=== PATIENT | female | born 1955 | race Asian ===

== ENCOUNTER 2017-10-09 11:27 | Inpatient (IN) | payer OTHER ==
[2017-10-09 12:28] VITALS: BMI 27.4
--- NOTE | 2017-10-09 16:28 | HP ---
Admission [facility] Chief Complaint: I WANT TO GO TO REHAB Allergies/Adverse Reactions: Allergies Allergy/AdvReac Type Severity Reaction Status Date / Time No Known Allergies Allergy Verified 10/09/17 15:29 History of Present Illness: 61 YEARS OLD FEMALE WITH LONG HISTORY OF ALCOHOL NICOTINE DEPENDENCE HAS ASTHMA , HYPERTENSION, DIABETES II AND BIPOLAR II IS ADMITTED TO REHAB Exam Limitations: No Limitations - Ebola screening Have you traveled outside of the country in the last 21 days: No Have you had contact with anyone from an Ebola affected area: No Have you been sick,other than usual withdrawal symptoms: No Do you have a fever: No - Review of Systems Constitutional: Weight Stable EENT: reports: Blurred Vision (EYE GLASSES) Respiratory: reports: SOB with Exertion, Productive cough (YELLOWISH) Cardiac: reports: No Symptoms Reported GI: reports: No Symptoms Reported : reports: No Symptoms Reported Musculoskeletal: reports: Muscle Weakness (AMBULATE WITH CANE BOTH LEGS) Integumentary: reports: Bruising (LEFT FORE ARM "LAST WEEK" GENERAL BODY = LEFT LEG) Neuro: reports: No Symptoms reported Endocrine: reports: Increased Urine Hematology: reports: No Symptoms Reported Psychiatric: reports: Judgement Intact, Orientated x3, Anxious Other Systems: Reviewed and Negative Patient History - Patient Medical History Hx Anemia: No Hx Asthma: Yes Hx Chronic Obstructive Pulmonary Disease (COPD): No Hx Cancer: No Hx Cardiac Disorders: No Hx Congestive Heart Failure: No Hx Hypertension: Yes Hx Hypercholesterolemia: No Hx Pacemaker: No HX Cerebrovascular Accident: No Hx Seizures: No Hx Dementia: No Hx Diabetes: Yes (NIDDM) Hx Gastrointestinal Disorders: Yes (ACID REFLUX) Hx Liver Disease: No Hx Genitourinary Disorders: No Hx Sexually Transmitted Disorders: No Hx Renal Disease (ESRD): No Hx Thyroid Disease: No Hx Human Immunodeficiency Virus (HIV): No Hx Hepatitis C: Yes Hx Depression: No Hx Suicide Attempt: No Hx Bipolar Disorder: Yes Hx Schizophrenia: No - Patient Surgical History Past Surgical History: Yes Hx Neurologic Surgery: No Hx Cataract Extraction: No Hx Cardiac Surgery: No Hx Lung Surgery: No Hx Breast Surgery: No Hx Abdominal Surgery: Yes (1996 GI BLEEDING) Hx Appendectomy: No Hx Cholecystectomy: No Hx Genitourinary Surgery: No Hx Section: No Hx Orthopedic Surgery: No Hx Hysterectomy: No Anesthesia Reaction: No - PPD History Previous Implant?: Yes Documented Results: Positive w/o proof Implanted On Prior [facility] Admission?: No PPD to be Administered?: No - Reproductive History Patient is a Female of Child Bearing Age (11 -55 yrs old): No LMP comment: AGE 56 Patient : No - Smoking Cessation Smoking history: Current every day smoker Have you smoked in the past 12 months: Yes Aproximately how many cigarettes per day: 10 Cigars Per Day: 0 Hx Chewing Tobacco Use: No Initiated information on smoking cessation: Yes 'Breaking Loose' booklet given: 10/09/17 - Substance & Tx. History Hx Alcohol Use: Yes Hx Substance Use: No Substance Use Type: Alcohol Hx Substance Use Treatment: Yes (2009) - Substances Abused Alcohol-beer Route: Oral Frequency: 1-2 times per week Amount used: 3 (25 oz.) Age of first use: 18 Date of Last Use: 10/07/17 Family Disease History - Family Disease History Family Disease History: Diabetes: Brother, Respiratory: Mother (), Other : Father (NO CONTACT), Mother Admission Physical Exam S - Vital Signs Vital Signs: Vital Signs - 24 hr 10/09/17 12:26 Temperature 98.3 F Pulse Rate 88 Respiratory 18 Rate Blood Pressure 126/100 - Physical General Appearance: Yes: No Apparent Distress, Nourished, Appropriately Dressed HEENTM: Yes: Hearing grossly Normal, Normal ENT Inspection, Normocephalic, Normal Voice, Other (EYE GLASSES) Respiratory: Yes: Chest Non-Tender, Lungs Clear, Normal Breath Sounds, No Respiratory Distress, No Accessory Muscle Use Neck: Yes: Supple, Trachea in good position Breast: Yes: Breasts Symetrical Cardiology: Yes: Regular Rhythm, Regular Rate, S1, S2 Abdominal: Yes: Normal Bowel Sounds, Non Tender, Soft, Surgical Scar Genitourinary: Yes: Within Normal Limits Back: Yes: Normal Inspection Musculoskeletal: Yes: full range of Motion, Gait Steady (CANE) Extremities: Yes: Normal Inspection (BRUSING GENERAL BODY), Normal Range of Motion, Non-Tender Neurological: Yes: Fully Oriented, Alert, Normal Response, Other (WEAKNESS OF BOTH LEGS) Integumentary: Yes: Warm, Other (BRUISING GENERAL BODY) Lymphatic: Yes: Within Normal Limits - Diagnostic (1) Alcohol dependence with uncomplicated withdrawal Current Visit: Yes Status: Acute (2) Nicotine dependence Current Visit: Yes Status: Acute Qualifiers: Nicotine product type: cigarettes Substance use status: in withdrawal Qualified Code(s): F17.213 - Nicotine dependence, cigarettes, with withdrawal (3) Asthma Current Visit: Yes Status: Chronic Qualifiers: Asthma severity: mild Asthma persistence: intermittent Asthma complication type: with status asthmaticus Qualified Code(s): J45.22 - Mild intermittent asthma with status asthmaticus (4) Hypertension Current Visit: Yes Status: Chronic Qualifiers: Hypertension type: essential hypertension Qualified Code(s): I10 - Essential (primary) hypertension (5) Diabetes mellitus type II, uncontrolled Current Visit: Yes Status: Chronic Qualifiers: Diabetes mellitus complication status: with neurologic complications Diabetes mellitus complication detail: with mononeuropathy Diabetes mellitus intermediate designer insulin use: without detention use Qualified Code(s): E11.41 - Type 2 diabetes mellitus with diabetic mononeuropathy; E11.65 - Type 2 diabetes mellitus with hyperglycemia; E11.65 - Type 2 diabetes mellitus with hyperglycemia; E11.65 - Type 2 diabetes mellitus with hyperglycemia; E11.65 - Type 2 diabetes mellitus with hyperglycemia (6) Use of cane as ambulatory aid Current Visit: Yes Status: Chronic Comment: X10 YEARS (7) GERD (gastroesophageal reflux disease) Current Visit: Yes Status: Chronic Qualifiers: Esophagitis presence: without esophagitis Qualified Code(s): K21.9 - Gastro -esophageal reflux disease without esophagitis (8) Hepatitis C Current Visit: Yes Status: Chronic Qualifiers: Viral hepatitis chronicity: carrier Qualified Code(s): B18.2 - Chronic viral hepatitis C (9) Positive PPD, treated Current Visit: Yes Status: Resolved (10) Bipolar II disorder Current Visit: Yes Status: Suspected Cleared for Admission [facility] - Detox or Rehab [facility] Level of Care: Observation Bed Detox Regimen/Protocol: Not Applicable Claeared for Rehab Admission: Yes [facility] Breath Alcohol Content Breath Alcohol Content: 0 Urine Pregancy Test - Result Urine Test Results: Negative- NO Line Present Urine Drug Screen - Results Drug Screen Negative: No Urine Drug Screen Results: BZO-Benzodiazepines, TCA-Tricyclic Antidepress Inpatient Rehab Admission - Initial Determination Are CD services needed?: Yes Free of communicable disease: Yes Not in need of hospitalization: Yes - Rehab Admission Criteria Previous failed treatment: Yes Poor recovery environment: Yes Comorbidities: Yes Lacks judgement: No Patient is meeting Inpatient Rehab admission criteria:: Yes
[2017-10-09] MEDS ORDERED: MAG HYDROX/AL HYDROX/SIMETH 30 ML UNIT-DOSE CUP PO PRN (16:35)
[2017-10-09] MEDS ORDERED: ACETAMINOPHEN 325 MG TABLET (FP) PO PRN (16:35)
[2017-10-09] MEDS ORDERED: MAGNESIUM HYDROX 2400MG/30ML ORAL SUSPENSION 30 ML CUP PO PRN (16:35)
[2017-10-09] MEDS ORDERED: LOPERAMIDE HCL 2 MG CAPSULE PO PRN (16:35)
[2017-10-09] MEDS ORDERED: MAGNESIUM CITRATE 300 ML BOTTLE PO PRN (16:35)
[2017-10-09] MEDS ORDERED: NICOTINE POLACRILEX 2 MG GUM BC PRN (16:35)
[2017-10-09] MEDS ORDERED: P-EPHED 60MG/TRIPROLIDI 2.5MG TABLET PO PRN (16:35)
[2017-10-09] MEDS ORDERED: ALBUTEROL SO4 18 GM HFA INHALER IH PRN (16:36)
[2017-10-09] MEDS: GLIMEPIRIDE 4 MG TABLET (FP) PO SCH (17:48)
[2017-10-09] MEDS ORDERED: PT OWN MED DRAWER 7, Y5N ONE (19:26)
[2017-10-09] MEDS: THIAMINE HCL 100 MG TABLET (FP) PO SCH (21:50)
[2017-10-09] MEDS: risperiDONE 2 MG TABLET PO SCH (21:50)
[2017-10-09] MEDS: OXcarbazepine 300 MG TABLET (UD) PO SCH (21:51)
[2017-10-09] MEDS: LITHIUM CARBONATE 450 MG TABLET.ER PO SCH (21:51)
[2017-10-09] MEDS: BENZTROPINE MESYLATE 1 MG TABLET (FP) PO SCH (21:52)
[2017-10-10] MEDS: sitaGLIPtin PHOSPHATE 100 MG TABLET (FP) PO SCH (06:15)
[2017-10-10] MEDS: OXcarbazepine 300 MG TABLET (UD) PO SCH ×2 (06:15→21:33)
[2017-10-10] MEDS: FLUoxetine HCL 20 MG CAPSULE (FP) PO SCH (06:16)
[2017-10-10] MEDS: GLIMEPIRIDE 4 MG TABLET (FP) PO SCH ×2 (06:16→16:59)
[2017-10-10] MEDS: INSULIN SLIDING SCALE (NOVOLOG) 1 VIAL SQ SCH ×2 (07:19→17:01)
[2017-10-10] MEDS ORDERED: INSULIN (NOVOLOG) ASPART 100 UNITS/ML 10ML VIAL ONE ×2 (07:49→17:02)
[2017-10-10] MEDS ORDERED: PT OWN MED DRAWER 7, Y5N ONE ×3 (08:53→19:18)
[2017-10-10 09:55] LABS: URINE APPEARANCE CLOUDY; URINE BILIRUBIN NEGATIVE (NEGATIVE); URINE BLOOD NEGATIVE (NEGATIVE); URINE COLOR LTYELLOW; URINE GLUCOSE (UA) 3+ (NEGATIVE); URINE KETONE NEGATIVE (NEGATIVE); URINE NITRITE NEGATIVE (NEGATIVE); URINE PROTEIN NEGATIVE (NEGATIVE); URINE UROBILINOGEN NEGATIVE mg/dL (0.2-1.0)
[2017-10-10 09:55] LABS: MCHC 33.1 g/dl (32.0-36.0); MEAN CELL VOLUME 96.5 fl (80-96); MEAN PLT VOLUME 8.5 fl (7.5-11.1); PLATELET COUNT 216 K/MM3 (134-434); RDW 13.9 % (11.6-15.6); WHITE BLOOD COUNT 6.9 K/mm3 (4.0-10.0)
[2017-10-10] MEDS: risperiDONE 2 MG TABLET PO SCH ×2 (10:01→21:31)
[2017-10-10] MEDS: PRENATAL VITAMINS W/ FOLIC ACID TABLET (FP) PO SCH (10:02)
[2017-10-10] MEDS: NICOTINE 14 MG/24 HOURS TOPICAL PATCH TD SCH (10:02)
[2017-10-10] MEDS: LISINOPRIL 5 MG TABLET (FP) PO SCH (10:02)
[2017-10-10] MEDS: BENZTROPINE MESYLATE 1 MG TABLET (FP) PO SCH ×2 (10:03→21:31)
[2017-10-10] MEDS: LITHIUM CARBONATE 450 MG TABLET.ER PO SCH ×2 (10:04→21:33)
[2017-10-10 11:00] LABS: ALBUMIN 3.6 g/dl (3.4-5.0); ALK PHOS 75 U/L (45-117); ANION GAP 6 (8-16); BILIRUBIN,TOTAL 0.6 mg/dL (0.2-1.0); CO2 29 mmol/L (21-32); CREATININE 0.7 mg/dL (0.55-1.02); SGOT/AST 28 U/L (15-37); SGPT/ALT 64 U/L (12-78); TOT PROT 6.5 g/dl (6.4-8.2)
[2017-10-10 11:18] LABS: GLUCOSE,RANDOM 352 mg/dL (74-106)
[2017-10-10 14:29] LABS: URINE LEUK ESTERASE TRACE (NEGATIVE)
[2017-10-10] MEDS: guaiFENesin/D-METHORPHAN HB 10 ML UNIT-DOSE CUPS PO PRN (20:15)
[2017-10-10] MEDS: MENTHOL/PHENOL 1 EACH UD MM PRN (20:16)
[2017-10-10] MEDS: THIAMINE HCL 100 MG TABLET (FP) PO SCH (21:31)
[2017-10-11] MEDS ORDERED: PT OWN MED DRAWER 7, Y5N ONE ×3 (05:49→16:20)
[2017-10-11] MEDS: sitaGLIPtin PHOSPHATE 100 MG TABLET (FP) PO SCH (06:48)
[2017-10-11] MEDS: OXcarbazepine 300 MG TABLET (UD) PO SCH ×2 (06:48→21:20)
[2017-10-11] MEDS: FLUoxetine HCL 20 MG CAPSULE (FP) PO SCH (06:48)
[2017-10-11] MEDS: INSULIN SLIDING SCALE (NOVOLOG) 1 VIAL SQ SCH ×2 (06:48→16:34)
[2017-10-11] MEDS: GLIMEPIRIDE 4 MG TABLET (FP) PO SCH ×2 (06:48→16:37)
[2017-10-11] MEDS ORDERED: INSULIN (NOVOLOG) ASPART 100 UNITS/ML 10ML VIAL ONE ×2 (06:52→16:34)
[2017-10-11] MEDS: PRENATAL VITAMINS W/ FOLIC ACID TABLET (FP) PO SCH (09:47)
[2017-10-11] MEDS: risperiDONE 2 MG TABLET PO SCH ×2 (09:47→21:21)
[2017-10-11] MEDS: BENZTROPINE MESYLATE 1 MG TABLET (FP) PO SCH ×2 (09:47→21:21)
[2017-10-11] MEDS: LITHIUM CARBONATE 450 MG TABLET.ER PO SCH ×2 (09:47→21:21)
[2017-10-11] MEDS: NICOTINE 14 MG/24 HOURS TOPICAL PATCH TD SCH (09:48)
[2017-10-11] MEDS: LISINOPRIL 5 MG TABLET (FP) PO SCH (09:48)
[2017-10-11] MEDS: guaiFENesin/D-METHORPHAN HB 10 ML UNIT-DOSE CUPS PO PRN ×2 (11:59→19:53)
[2017-10-11] MEDS: ALBUTEROL SO4 2.5/IPRATROPIUM 0.5 INH SOL 3 ML VIAL.NEB. NEB PRN (12:35)
[2017-10-11] MEDS: MENTHOL/PHENOL 1 EACH UD MM PRN ×2 (16:37→21:00)
[2017-10-11] MEDS: THIAMINE HCL 100 MG TABLET (FP) PO SCH (21:21)
[2017-10-12] MEDS ORDERED: PT OWN MED DRAWER 7, Y5N ONE ×3 (03:23→19:24)
[2017-10-12] MEDS: sitaGLIPtin PHOSPHATE 100 MG TABLET (FP) PO SCH (06:22)
[2017-10-12] MEDS: FLUoxetine HCL 20 MG CAPSULE (FP) PO SCH (06:22)
[2017-10-12] MEDS: OXcarbazepine 300 MG TABLET (UD) PO SCH ×2 (06:22→21:19)
[2017-10-12] MEDS: GLIMEPIRIDE 4 MG TABLET (FP) PO SCH ×2 (06:22→16:32)
[2017-10-12] MEDS: INSULIN SLIDING SCALE (NOVOLOG) 1 VIAL SQ SCH ×2 (06:23→16:33)
[2017-10-12] MEDS ORDERED: INSULIN (NOVOLOG) ASPART 100 UNITS/ML 10ML VIAL ONE ×2 (06:48→16:32)
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
[2017-10-12] MEDS: PRENATAL VITAMINS W/ FOLIC ACID TABLET (FP) PO SCH (09:45)
[2017-10-12] MEDS: risperiDONE 2 MG TABLET PO SCH ×2 (09:45→21:19)
[2017-10-12] MEDS: LISINOPRIL 5 MG TABLET (FP) PO SCH (09:45)
[2017-10-12] MEDS: BENZTROPINE MESYLATE 1 MG TABLET (FP) PO SCH ×2 (09:46→21:20)
[2017-10-12] MEDS: LITHIUM CARBONATE 450 MG TABLET.ER PO SCH ×2 (09:47→21:20)
[2017-10-12] MEDS: guaiFENesin/D-METHORPHAN HB 10 ML UNIT-DOSE CUPS PO PRN ×2 (09:47→21:22)
[2017-10-12] MEDS: NICOTINE 14 MG/24 HOURS TOPICAL PATCH TD SCH (09:48)
--- NOTE | 2017-10-12 15:24 | PN ---
S Progress Note (SOAP) Plan: .
[2017-10-12] MEDS: ALBUTEROL SO4 2.5/IPRATROPIUM 0.5 INH SOL 3 ML VIAL.NEB. NEB PRN (15:53)
[2017-10-12] MEDS: THIAMINE HCL 100 MG TABLET (FP) PO SCH (21:19)
--- NOTE | 2017-10-13 01:04 | EKG ---
Test Reason : Blood Pressure : / mmHG Vent. Rate : 082 BPM Atrial Rate : 082 BPM P-R Int : 170 ms QRS Dur : 084 ms QT Int : 382 ms P-R-T Axes : 057 023 035 degrees QTc Int : 446 ms NORMAL SINUS RHYTHM NORMAL ECG NO PREVIOUS ECGS AVAILABLE Confirmed by LIBRADO SUERO MD ([id number]) on 10/13/2017 1:04:22 AM Referred By: Confirmed By:LIBRADO SUERO MD
[2017-10-13] MEDS ORDERED: PT OWN MED DRAWER 7, Y5N ONE ×2 (03:30→16:36)
[2017-10-13] MEDS: FLUoxetine HCL 20 MG CAPSULE (FP) PO SCH (06:28)
[2017-10-13] MEDS: GLIMEPIRIDE 4 MG TABLET (FP) PO SCH ×2 (06:28→17:10)
[2017-10-13] MEDS: sitaGLIPtin PHOSPHATE 100 MG TABLET (FP) PO SCH (06:28)
[2017-10-13] MEDS: INSULIN SLIDING SCALE (NOVOLOG) 1 VIAL SQ SCH ×3 (06:29→17:24)
[2017-10-13] MEDS: OXcarbazepine 300 MG TABLET (UD) PO SCH ×2 (06:29→21:13)
[2017-10-13] MEDS ORDERED: INSULIN (NOVOLOG) ASPART 100 UNITS/ML 10ML VIAL ONE ×2 (07:13→17:24)
[2017-10-13] MEDS: BENZTROPINE MESYLATE 1 MG TABLET (FP) PO SCH ×2 (10:00→21:16)
[2017-10-13] MEDS: PRENATAL VITAMINS W/ FOLIC ACID TABLET (FP) PO SCH (10:00)
[2017-10-13] MEDS: risperiDONE 2 MG TABLET PO SCH ×2 (10:00→21:13)
[2017-10-13] MEDS: LISINOPRIL 5 MG TABLET (FP) PO SCH (10:01)
[2017-10-13] MEDS: LITHIUM CARBONATE 450 MG TABLET.ER PO SCH ×2 (10:01→21:14)
[2017-10-13] MEDS: NICOTINE 14 MG/24 HOURS TOPICAL PATCH TD SCH (10:01)
[2017-10-13] MEDS: guaiFENesin/D-METHORPHAN HB 10 ML UNIT-DOSE CUPS PO PRN (11:32)
[2017-10-13] MEDS ORDERED: ACETAMINOPHEN 500 MG TABLET (FP) PO ONE (14:21)
[2017-10-13] MEDS: PANTOPRAZOLE 40 MG TABLET (FP) PO SCH (15:00)
[2017-10-13] MEDS: LORATADINE 10 MG TABLET PO SCH (15:00)
[2017-10-13] MEDS: guaiFENesin/D-METHORPHAN HB 10 ML UNIT-DOSE CUPS PO SCH ×2 (15:02→21:14)
[2017-10-13] MEDS: THIAMINE HCL 100 MG TABLET (FP) PO SCH (21:16)
[2017-10-13] MEDS ORDERED: NAPROXEN 500 MG TABLET (FP) PO SCH (22:00)
[2017-10-14] MEDS ORDERED: PT OWN MED DRAWER 7, Y5N ONE (03:27)
[2017-10-14] MEDS: sitaGLIPtin PHOSPHATE 100 MG TABLET (FP) PO SCH (06:34)
[2017-10-14] MEDS: FLUoxetine HCL 20 MG CAPSULE (FP) PO SCH (06:34)
[2017-10-14] MEDS: GLIMEPIRIDE 4 MG TABLET (FP) PO SCH ×2 (06:34→17:16)
[2017-10-14] MEDS: guaiFENesin/D-METHORPHAN HB 10 ML UNIT-DOSE CUPS PO SCH ×4 (06:34→23:31)
[2017-10-14] MEDS: OXcarbazepine 300 MG TABLET (UD) PO SCH ×2 (06:34→21:15)
[2017-10-14] MEDS: INSULIN SLIDING SCALE (NOVOLOG) 1 VIAL SQ SCH ×2 (06:34→17:19)
[2017-10-14] MEDS ORDERED: INSULIN (NOVOLOG) ASPART 100 UNITS/ML 10ML VIAL ONE ×2 (07:06→17:18)
[2017-10-14] MEDS: LORATADINE 10 MG TABLET PO SCH (09:43)
[2017-10-14] MEDS: PRENATAL VITAMINS W/ FOLIC ACID TABLET (FP) PO SCH (09:43)
[2017-10-14] MEDS: LISINOPRIL 5 MG TABLET (FP) PO SCH (09:43)
[2017-10-14] MEDS: BENZTROPINE MESYLATE 1 MG TABLET (FP) PO SCH ×2 (09:43→21:14)
[2017-10-14] MEDS: LITHIUM CARBONATE 450 MG TABLET.ER PO SCH ×2 (09:44→21:15)
[2017-10-14] MEDS: PANTOPRAZOLE 40 MG TABLET (FP) PO SCH (09:44)
[2017-10-14] MEDS: risperiDONE 2 MG TABLET PO SCH ×2 (09:44→21:15)
[2017-10-14] MEDS: NICOTINE 14 MG/24 HOURS TOPICAL PATCH TD SCH (09:45)
[2017-10-14] MEDS: THIAMINE HCL 100 MG TABLET (FP) PO SCH (21:15)
[2017-10-14] MEDS: MENTHOL/PHENOL 1 EACH UD MM PRN (23:32)
[2017-10-15] MEDS ORDERED: PT OWN MED DRAWER 7, Y5N ONE ×2 (03:16→07:15)
[2017-10-15] MEDS: INSULIN SLIDING SCALE (NOVOLOG) 1 VIAL SQ SCH ×2 (06:53→17:29)
[2017-10-15] MEDS: guaiFENesin/D-METHORPHAN HB 10 ML UNIT-DOSE CUPS PO SCH ×3 (06:54→17:29)
[2017-10-15] MEDS: OXcarbazepine 300 MG TABLET (UD) PO SCH ×2 (06:54→21:13)
[2017-10-15] MEDS: GLIMEPIRIDE 4 MG TABLET (FP) PO SCH ×2 (06:54→17:30)
[2017-10-15] MEDS: FLUoxetine HCL 20 MG CAPSULE (FP) PO SCH (06:54)
[2017-10-15] MEDS: sitaGLIPtin PHOSPHATE 100 MG TABLET (FP) PO SCH (06:54)
[2017-10-15] MEDS ORDERED: INSULIN (NOVOLOG) ASPART 100 UNITS/ML 10ML VIAL ONE ×2 (07:14→17:18)
[2017-10-15] MEDS: risperiDONE 2 MG TABLET PO SCH ×2 (09:53→21:12)
[2017-10-15] MEDS: PRENATAL VITAMINS W/ FOLIC ACID TABLET (FP) PO SCH (09:53)
[2017-10-15] MEDS: PANTOPRAZOLE 40 MG TABLET (FP) PO SCH (09:53)
[2017-10-15] MEDS: NICOTINE 14 MG/24 HOURS TOPICAL PATCH TD SCH (09:53)
[2017-10-15] MEDS: LORATADINE 10 MG TABLET PO SCH (09:53)
[2017-10-15] MEDS: BENZTROPINE MESYLATE 1 MG TABLET (FP) PO SCH ×2 (09:53→21:14)
[2017-10-15] MEDS: LISINOPRIL 5 MG TABLET (FP) PO SCH (09:53)
[2017-10-15] MEDS: LITHIUM CARBONATE 450 MG TABLET.ER PO SCH ×2 (09:57→21:13)
[2017-10-15] MEDS: THIAMINE HCL 100 MG TABLET (FP) PO SCH (21:13)
[2017-10-16] MEDS: guaiFENesin/D-METHORPHAN HB 10 ML UNIT-DOSE CUPS PO SCH ×4 (00:15→18:09)
[2017-10-16] MEDS ORDERED: PT OWN MED DRAWER 7, Y5N ONE (05:45)
[2017-10-16] MEDS: OXcarbazepine 300 MG TABLET (UD) PO SCH ×2 (06:52→21:21)
[2017-10-16] MEDS: sitaGLIPtin PHOSPHATE 100 MG TABLET (FP) PO SCH (06:52)
[2017-10-16] MEDS: INSULIN SLIDING SCALE (NOVOLOG) 1 VIAL SQ SCH ×2 (06:52→16:35)
[2017-10-16] MEDS: FLUoxetine HCL 20 MG CAPSULE (FP) PO SCH (06:52)
[2017-10-16] MEDS ORDERED: INSULIN (NOVOLOG) ASPART 100 UNITS/ML 10ML VIAL ONE ×2 (07:02→16:34)
[2017-10-16] MEDS: GLIMEPIRIDE 4 MG TABLET (FP) PO SCH ×2 (07:06→16:35)
[2017-10-16] MEDS: LISINOPRIL 5 MG TABLET (FP) PO SCH (09:58)
[2017-10-16] MEDS: BENZTROPINE MESYLATE 1 MG TABLET (FP) PO SCH ×2 (09:58→21:21)
[2017-10-16] MEDS: PANTOPRAZOLE 40 MG TABLET (FP) PO SCH (09:58)
[2017-10-16] MEDS: PRENATAL VITAMINS W/ FOLIC ACID TABLET (FP) PO SCH (09:58)
[2017-10-16] MEDS: LORATADINE 10 MG TABLET PO SCH (09:59)
[2017-10-16] MEDS: risperiDONE 2 MG TABLET PO SCH ×2 (09:59→21:22)
[2017-10-16] MEDS: LITHIUM CARBONATE 450 MG TABLET.ER PO SCH ×2 (09:59→21:21)
[2017-10-16] MEDS: NICOTINE 14 MG/24 HOURS TOPICAL PATCH TD SCH (09:59)
[2017-10-16] MEDS: MENTHOL/PHENOL 1 EACH UD MM PRN ×2 (11:50→21:26)
[2017-10-16] MEDS: THIAMINE HCL 100 MG TABLET (FP) PO SCH (21:21)
[2017-10-17] MEDS: guaiFENesin/D-METHORPHAN HB 10 ML UNIT-DOSE CUPS PO SCH ×5 (00:36→23:35)
[2017-10-17] MEDS: INSULIN SLIDING SCALE (NOVOLOG) 1 VIAL SQ SCH ×2 (06:37→16:27)
[2017-10-17] MEDS: FLUoxetine HCL 20 MG CAPSULE (FP) PO SCH (06:38)
[2017-10-17] MEDS: OXcarbazepine 300 MG TABLET (UD) PO SCH ×2 (06:38→21:09)
[2017-10-17] MEDS: sitaGLIPtin PHOSPHATE 100 MG TABLET (FP) PO SCH (06:38)
[2017-10-17] MEDS: GLIMEPIRIDE 4 MG TABLET (FP) PO SCH ×2 (06:38→16:28)
[2017-10-17] MEDS ORDERED: INSULIN (NOVOLOG) ASPART 100 UNITS/ML 10ML VIAL ONE ×2 (07:28→16:32)
[2017-10-17] MEDS: BENZTROPINE MESYLATE 1 MG TABLET (FP) PO SCH ×2 (09:41→21:09)
[2017-10-17] MEDS: PRENATAL VITAMINS W/ FOLIC ACID TABLET (FP) PO SCH (09:42)
[2017-10-17] MEDS: LORATADINE 10 MG TABLET PO SCH (09:42)
[2017-10-17] MEDS: LISINOPRIL 5 MG TABLET (FP) PO SCH (09:42)
[2017-10-17] MEDS: PANTOPRAZOLE 40 MG TABLET (FP) PO SCH (09:42)
[2017-10-17] MEDS: risperiDONE 2 MG TABLET PO SCH ×2 (09:42→21:10)
[2017-10-17] MEDS: NICOTINE 14 MG/24 HOURS TOPICAL PATCH TD SCH (09:43)
[2017-10-17] MEDS: LITHIUM CARBONATE 450 MG TABLET.ER PO SCH ×2 (09:43→21:09)
[2017-10-17] MEDS: THIAMINE HCL 100 MG TABLET (FP) PO SCH (21:10)
[2017-10-18] MEDS: INSULIN SLIDING SCALE (NOVOLOG) 1 VIAL SQ SCH ×2 (06:41→16:45)
[2017-10-18] MEDS: sitaGLIPtin PHOSPHATE 100 MG TABLET (FP) PO SCH (06:42)
[2017-10-18] MEDS: GLIMEPIRIDE 4 MG TABLET (FP) PO SCH ×2 (06:42→16:45)
[2017-10-18] MEDS: FLUoxetine HCL 20 MG CAPSULE (FP) PO SCH (06:42)
[2017-10-18] MEDS: OXcarbazepine 300 MG TABLET (UD) PO SCH ×2 (06:42→21:12)
[2017-10-18] MEDS: guaiFENesin/D-METHORPHAN HB 10 ML UNIT-DOSE CUPS PO SCH ×3 (06:42→17:01)
[2017-10-18] MEDS: PRENATAL VITAMINS W/ FOLIC ACID TABLET (FP) PO SCH (10:01)
[2017-10-18] MEDS: BENZTROPINE MESYLATE 1 MG TABLET (FP) PO SCH ×2 (10:01→21:10)
[2017-10-18] MEDS: PANTOPRAZOLE 40 MG TABLET (FP) PO SCH (10:02)
[2017-10-18] MEDS: LORATADINE 10 MG TABLET PO SCH (10:02)
[2017-10-18] MEDS: LISINOPRIL 5 MG TABLET (FP) PO SCH (10:02)
[2017-10-18] MEDS: risperiDONE 2 MG TABLET PO SCH ×2 (10:02→21:11)
[2017-10-18] MEDS: NICOTINE 14 MG/24 HOURS TOPICAL PATCH TD SCH (10:03)
[2017-10-18] MEDS: LITHIUM CARBONATE 450 MG TABLET.ER PO SCH ×2 (10:03→21:10)
[2017-10-18] MEDS ORDERED: PT OWN MED DRAWER 7, Y5N ONE (10:34)
[2017-10-18] MEDS ORDERED: INSULIN (NOVOLOG) ASPART 100 UNITS/ML 10ML VIAL ONE (16:44)
[2017-10-18] MEDS: THIAMINE HCL 100 MG TABLET (FP) PO SCH (21:11)
[2017-10-19] MEDS: guaiFENesin/D-METHORPHAN HB 10 ML UNIT-DOSE CUPS PO SCH ×2 (00:04→06:04)
[2017-10-19] MEDS: OXcarbazepine 300 MG TABLET (UD) PO SCH ×2 (06:04→21:16)
[2017-10-19] MEDS: FLUoxetine HCL 20 MG CAPSULE (FP) PO SCH (06:04)
[2017-10-19] MEDS: sitaGLIPtin PHOSPHATE 100 MG TABLET (FP) PO SCH (06:04)
[2017-10-19] MEDS: GLIMEPIRIDE 4 MG TABLET (FP) PO SCH ×2 (06:05→16:39)
[2017-10-19] MEDS ORDERED: INSULIN (NOVOLOG) ASPART 100 UNITS/ML 10ML VIAL ONE ×2 (07:31→16:36)
[2017-10-19] MEDS: INSULIN SLIDING SCALE (NOVOLOG) 1 VIAL SQ SCH ×2 (07:32→16:39)
[2017-10-19] MEDS: PRENATAL VITAMINS W/ FOLIC ACID TABLET (FP) PO SCH (10:03)
[2017-10-19] MEDS: LORATADINE 10 MG TABLET PO SCH (10:03)
[2017-10-19] MEDS: PANTOPRAZOLE 40 MG TABLET (FP) PO SCH (10:03)
[2017-10-19] MEDS: risperiDONE 2 MG TABLET PO SCH ×2 (10:03→21:16)
[2017-10-19] MEDS: LISINOPRIL 5 MG TABLET (FP) PO SCH (10:03)
[2017-10-19] MEDS: BENZTROPINE MESYLATE 1 MG TABLET (FP) PO SCH ×2 (10:03→21:16)
[2017-10-19] MEDS: LITHIUM CARBONATE 450 MG TABLET.ER PO SCH ×2 (10:03→21:16)
[2017-10-19] MEDS: NICOTINE 14 MG/24 HOURS TOPICAL PATCH TD SCH (10:04)
[2017-10-19] MEDS: guaiFENesin/D-M SUGAR-FREE/ACLHOL-FREE 118 ML BOTTLE PO SCH ×3 (13:09→23:17)
[2017-10-19] MEDS ORDERED: PT OWN MED DRAWER 7, Y5N ONE ×3 (13:40→22:58)
[2017-10-19] MEDS: THIAMINE HCL 100 MG TABLET (FP) PO SCH (21:15)
[2017-10-20] MEDS: guaiFENesin/D-M SUGAR-FREE/ACLHOL-FREE 118 ML BOTTLE PO SCH ×3 (06:30→17:01)
[2017-10-20] MEDS: sitaGLIPtin PHOSPHATE 100 MG TABLET (FP) PO SCH (06:31)
[2017-10-20] MEDS: OXcarbazepine 300 MG TABLET (UD) PO SCH ×2 (06:31→21:18)
[2017-10-20] MEDS: FLUoxetine HCL 20 MG CAPSULE (FP) PO SCH (06:31)
[2017-10-20] MEDS: GLIMEPIRIDE 4 MG TABLET (FP) PO SCH ×2 (06:31→17:01)
[2017-10-20] MEDS: INSULIN SLIDING SCALE (NOVOLOG) 1 VIAL SQ SCH ×2 (07:42→17:00)
[2017-10-20] MEDS ORDERED: INSULIN (NOVOLOG) ASPART 100 UNITS/ML 10ML VIAL ONE ×2 (07:47→16:47)
[2017-10-20] MEDS ORDERED: PT OWN MED DRAWER 7, Y5N ONE (08:43)
[2017-10-20] MEDS: NICOTINE 14 MG/24 HOURS TOPICAL PATCH TD SCH (09:48)
[2017-10-20] MEDS: PANTOPRAZOLE 40 MG TABLET (FP) PO SCH (09:49)
[2017-10-20] MEDS: BENZTROPINE MESYLATE 1 MG TABLET (FP) PO SCH ×2 (09:49→21:18)
[2017-10-20] MEDS: risperiDONE 2 MG TABLET PO SCH ×2 (09:49→21:18)
[2017-10-20] MEDS: LORATADINE 10 MG TABLET PO SCH (09:50)
[2017-10-20] MEDS: PRENATAL VITAMINS W/ FOLIC ACID TABLET (FP) PO SCH (09:50)
[2017-10-20] MEDS: LITHIUM CARBONATE 450 MG TABLET.ER PO SCH ×2 (09:50→21:18)
[2017-10-20] MEDS: LISINOPRIL 5 MG TABLET (FP) PO SCH (09:50)
[2017-10-20] MEDS: THIAMINE HCL 100 MG TABLET (FP) PO SCH (21:17)
[2017-10-21] MEDS: guaiFENesin/D-M SUGAR-FREE/ACLHOL-FREE 118 ML BOTTLE PO SCH ×4 (00:23→18:25)
[2017-10-21] MEDS ORDERED: PT OWN MED DRAWER 7, Y5N ONE ×2 (03:30→07:58)
[2017-10-21] MEDS: GLIMEPIRIDE 4 MG TABLET (FP) PO SCH ×2 (06:41→16:56)
[2017-10-21] MEDS: OXcarbazepine 300 MG TABLET (UD) PO SCH ×2 (06:41→21:18)
[2017-10-21] MEDS: sitaGLIPtin PHOSPHATE 100 MG TABLET (FP) PO SCH (06:41)
[2017-10-21] MEDS: FLUoxetine HCL 20 MG CAPSULE (FP) PO SCH (06:41)
[2017-10-21] MEDS: INSULIN SLIDING SCALE (NOVOLOG) 1 VIAL SQ SCH ×2 (06:42→16:54)
[2017-10-21] MEDS ORDERED: INSULIN (NOVOLOG) ASPART 100 UNITS/ML 10ML VIAL ONE ×2 (07:58→16:55)
[2017-10-21] MEDS: LORATADINE 10 MG TABLET PO SCH (09:20)
[2017-10-21] MEDS: BENZTROPINE MESYLATE 1 MG TABLET (FP) PO SCH ×2 (09:21→21:19)
[2017-10-21] MEDS: PRENATAL VITAMINS W/ FOLIC ACID TABLET (FP) PO SCH (09:21)
[2017-10-21] MEDS: LITHIUM CARBONATE 450 MG TABLET.ER PO SCH ×2 (09:21→21:18)
[2017-10-21] MEDS: risperiDONE 2 MG TABLET PO SCH ×2 (09:22→21:17)
[2017-10-21] MEDS: LISINOPRIL 5 MG TABLET (FP) PO SCH (09:22)
[2017-10-21] MEDS: NICOTINE 14 MG/24 HOURS TOPICAL PATCH TD SCH (09:22)
[2017-10-21] MEDS: PANTOPRAZOLE 40 MG TABLET (FP) PO SCH (09:23)
[2017-10-21] MEDS: THIAMINE HCL 100 MG TABLET (FP) PO SCH (21:17)
[2017-10-22] MEDS: guaiFENesin/D-M SUGAR-FREE/ACLHOL-FREE 118 ML BOTTLE PO SCH ×4 (00:25→17:06)
[2017-10-22] MEDS ORDERED: PT OWN MED DRAWER 7, Y5N ONE ×2 (02:54→07:31)
[2017-10-22] MEDS: INSULIN SLIDING SCALE (NOVOLOG) 1 VIAL SQ SCH ×2 (06:21→17:06)
[2017-10-22] MEDS: FLUoxetine HCL 20 MG CAPSULE (FP) PO SCH (06:22)
[2017-10-22] MEDS: OXcarbazepine 300 MG TABLET (UD) PO SCH ×2 (06:22→21:11)
[2017-10-22] MEDS: GLIMEPIRIDE 4 MG TABLET (FP) PO SCH ×2 (06:22→17:06)
[2017-10-22] MEDS: sitaGLIPtin PHOSPHATE 100 MG TABLET (FP) PO SCH (06:22)
[2017-10-22] MEDS ORDERED: INSULIN (NOVOLOG) ASPART 100 UNITS/ML 10ML VIAL ONE ×3 (07:31→23:11)
[2017-10-22] MEDS: PANTOPRAZOLE 40 MG TABLET (FP) PO SCH (09:52)
[2017-10-22] MEDS: BENZTROPINE MESYLATE 1 MG TABLET (FP) PO SCH ×2 (09:52→21:12)
[2017-10-22] MEDS: LISINOPRIL 5 MG TABLET (FP) PO SCH (09:52)
[2017-10-22] MEDS: NICOTINE 14 MG/24 HOURS TOPICAL PATCH TD SCH (09:52)
[2017-10-22] MEDS: risperiDONE 2 MG TABLET PO SCH ×2 (09:52→21:11)
[2017-10-22] MEDS: LITHIUM CARBONATE 450 MG TABLET.ER PO SCH ×2 (09:52→21:12)
[2017-10-22] MEDS: LORATADINE 10 MG TABLET PO SCH (09:52)
[2017-10-22] MEDS: PRENATAL VITAMINS W/ FOLIC ACID TABLET (FP) PO SCH (09:53)
[2017-10-22] MEDS: THIAMINE HCL 100 MG TABLET (FP) PO SCH (21:11)
[2017-10-23] MEDS: guaiFENesin/D-M SUGAR-FREE/ACLHOL-FREE 118 ML BOTTLE PO SCH ×2 (00:20→06:33)
[2017-10-23] MEDS ORDERED: PT OWN MED DRAWER 7, Y5N ONE (03:17)
[2017-10-23] MEDS: GLIMEPIRIDE 4 MG TABLET (FP) PO SCH (06:25)
[2017-10-23] MEDS: sitaGLIPtin PHOSPHATE 100 MG TABLET (FP) PO SCH (06:26)
[2017-10-23] MEDS: FLUoxetine HCL 20 MG CAPSULE (FP) PO SCH (06:26)
[2017-10-23] MEDS: OXcarbazepine 300 MG TABLET (UD) PO SCH (06:26)
[2017-10-23] MEDS: INSULIN SLIDING SCALE (NOVOLOG) 1 VIAL SQ SCH (06:27)
[2017-10-23 06:52] VITALS: TEMP 98.6
[2017-10-23] MEDS ORDERED: INSULIN (NOVOLOG) ASPART 100 UNITS/ML 10ML VIAL ONE (08:03)
[2017-10-23 09:05] VITALS: BP 121/75; PULSE 80
--- NOTE | 2017-10-23 09:07 | PN ---
Psychiatric Progress Note Vital Signs: Vital Signs Period Temp Pulse Resp BP Sys/Vance Pulse Ox Last 24 Hr 98.6 F 80-84 18-18 121-127/74-75 Date of Session: 10/23/17 Chief Complaint:: Discharge visit Current Medications: Active Medications Generic Name Dose Route Start Last Admin Trade Name Freq PRN Reason Stop Dose Admin Acetaminophen 650 mg 10/09/17 16:35 10/10/17 20:16 Tylenol - PO 650 mg Q4H PRN Administration PAIN Al Hydroxide/Mg Hydroxide 30 ml 10/09/17 16:35 10/10/17 20:15 Mylanta Oral Suspension - PO 30 ml Q6H PRN Administration DYSPEPSIA Albuterol Sulfate 2 puff 10/09/17 16:36 10/11/17 19:55 Ventolin Hfa Inhaler - IH 2 puff Q4H PRN Administration ASTHMA Benztropine Mesylate 0.5 mg 10/09/17 22:00 10/22/17 21:12 Cogentin - PO 0.5 mg BID TRISH Administration Eucalyptus/Menthol/Phenol/Sorbitol 1 each 10/09/17 16:35 10/16/17 21:26 Cepastat Lozenge - MM 1 each Q4H PRN Administration SORE THROAT Fluoxetine HCl 20 mg 10/10/17 07:00 10/23/17 06:26 Prozac - PO 20 mg AM TRISH Administration Glimepiride 4 mg 10/09/17 16:30 10/23/17 06:25 Amaryl - PO 4 mg BIDAC TRISH Administration Guaifenesin 10 ml 10/19/17 12:00 10/23/17 06:33 Diabetic Tussin Dm - PO 10 ml Q6HPO TRISH Administration Insulin Aspart 1 vial 10/13/17 14:34 10/23/17 06:27 Novolog Vial Sliding Scale - SQ 8 units BIDAC TRISH Administration Protocol Lisinopril 5 mg 10/10/17 10:00 10/22/17 09:52 Prinivil PO 5 mg DAILY TRISH Administration Merrick Carbonate 450 mg 10/09/17 22:00 10/22/17 21:12 Eskalith - PO 450 mg BID TRISH Administration Loperamide HCl 4 mg 10/09/17 16:35 Imodium - PO Q6H PRN DIARRHEA Loratadine 10 mg 10/13/17 14:30 10/22/17 09:52 Claritin - PO 10 mg DAILY TRISH Administration Magnesium Citrate 300 ml 10/09/17 16:35 Citroma - PO Q48H PRN CONSTIPATION Magnesium Hydroxide 30 ml 10/09/17 16:35 Milk Of Magnesia - PO DAILY PRN CONSTIPATION Nicotine 14 mg 10/10/17 10:00 10/22/17 09:52 Nicoderm Patch - TD 14 mg DAILY TRISH Administration Nicotine Polacrilex 2 mg 10/09/17 16:35 Nicorette Gum - BC Q2H PRN NICOTINE REPLACEMENT RX Oxcarbazepine 300 mg 10/10/17 07:00 10/23/17 06:26 Trileptal - PO 300 mg AM TRISH Administration Oxcarbazepine 600 mg 10/09/17 22:00 10/22/17 21:11 Trileptal - PO 600 mg HS TRISH Administration Pantoprazole Sodium 40 mg 10/13/17 14:30 10/22/17 09:52 Protonix - PO 40 mg DAILY TRISH Administration Multivit/Folic Acid/Iron 1 tab 10/10/17 10:00 10/22/17 09:53 Vitamins ([facility]) - PO 1 tab DAILY TRISH Administration Risperidone 2 mg 10/10/17 10:00 10/22/17 09:52 Risperdal - PO 2 mg DAILY TRISH Administration Risperidone 4 mg 10/09/17 22:00 10/22/17 21:11 Risperdal - PO 4 mg HS TRISH Administration Sitagliptin Phosphate 100 mg 10/10/17 07:00 10/23/17 06:26 Januvia - PO 100 mg ACBK TRISH Administration Thiamine HCl 100 mg 10/09/17 22:00 10/22/17 21:11 Vitamin B1 - PO 100 mg HS TRISH Administration Current Side Effect: No Lab tests ordered: No Lab tests reviewed: Yes Psychiatric Treatment Plan - Problem List (1) Seizure Current Visit: Yes Comment: HEAD TRAUMA AT AGE 20 TREATED WITH TRILEPTAL (2) Nicotine dependence Current Visit: Yes Qualifiers: Nicotine product type: cigarettes Substance use status: in withdrawal Qualified Code(s): F17.213 - Nicotine dependence, cigarettes, with withdrawal (3) Asthma Current Visit: Yes Qualifiers: Asthma severity: mild Asthma persistence: intermittent Asthma complication type: with status asthmaticus Qualified Code(s): J45.22 - Mild intermittent asthma with status asthmaticus (4) Hypertension Current Visit: Yes Qualifiers: Hypertension type: essential hypertension Qualified Code(s): I10 - Essential (primary) hypertension (5) Diabetes mellitus type II, uncontrolled Current Visit: Yes Qualifiers: Diabetes mellitus complication status: with neurologic complications Diabetes mellitus complication detail: with mononeuropathy Diabetes mellitus fdc insulin use: without ad terminal makeup operator use Qualified Code(s): E11.41 - Type 2 diabetes mellitus with diabetic mononeuropathy; E11.65 - Type 2 diabetes mellitus with hyperglycemia; E11.65 - Type 2 diabetes mellitus with hyperglycemia; E11.65 - Type 2 diabetes mellitus with hyperglycemia; E11.65 - Type 2 diabetes mellitus with hyperglycemia (6) GERD (gastroesophageal reflux disease) Current Visit: Yes Qualifiers: Esophagitis presence: without esophagitis Qualified Code(s): K21.9 - Gastro -esophageal reflux disease without esophagitis (7) Hepatitis C Current Visit: Yes Qualifiers: Viral hepatitis chronicity: carrier Qualified Code(s): B18.2 - Chronic viral hepatitis C (8) Bipolar II disorder Current Visit: Yes (9) Positive PPD, treated Current Visit: Yes (10) Alcohol dependence Current Visit: Yes
[2017-10-23] MEDS: PRENATAL VITAMINS W/ FOLIC ACID TABLET (FP) PO SCH (09:39)
[2017-10-23] MEDS: PANTOPRAZOLE 40 MG TABLET (FP) PO SCH (09:39)
[2017-10-23] MEDS: risperiDONE 2 MG TABLET PO SCH (09:40)
[2017-10-23] MEDS: LORATADINE 10 MG TABLET PO SCH (09:40)
[2017-10-23] MEDS: LISINOPRIL 5 MG TABLET (FP) PO SCH (09:40)
[2017-10-23] MEDS: BENZTROPINE MESYLATE 1 MG TABLET (FP) PO SCH (09:40)
[2017-10-23] MEDS: LITHIUM CARBONATE 450 MG TABLET.ER PO SCH (09:40)
[2017-10-23] MEDS: NICOTINE 14 MG/24 HOURS TOPICAL PATCH TD SCH (09:41)
== END 2017-10-23 09:42 | disposition home or self-care (01) | DRG 772 ==
LOC: YASAS 11:27 → Y3E 16:17
PROVIDERS: ADMIT Psychiatry & Neurology Psychiatry; ATTEND Psychiatry & Neurology Psychiatry
PROC: HZ42ZZZ Group Counseling for Substance Abuse Treatment, Cognitive-Behavioral (ICD-10-PCS; principal; 2017-10-09)
DX: F11.20 Opioid dependence, uncomplicated (principal); F17.210 Nicotine dependence, cigarettes, uncomplicated; F31.81 Bipolar II disorder; I10 Essential (primary) hypertension; E11.65 Type 2 diabetes mellitus with hyperglycemia; Z79.84 Long term (current) use of oral hypoglycemic drugs; J45.22 Mild intermittent asthma with status asthmaticus; K21.9 Gastro-esophageal reflux disease without esophagitis; B18.2 Chronic viral hepatitis C; R76.11 Nonspecific reaction to tuberculin skin test without active tuberculosis
CPT/HCPCS: 36415; 71020-TC; 80053; 80178; 81003; 81015; 85027; 86593; 93005; 93010; 94640

== ENCOUNTER 2019-11-15 15:07 | Inpatient (IN) | payer OTHER ==
[2019-11-15 18:17] VITALS: BMI 28.8
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
[2019-11-15] MEDS ORDERED: ACETAMINOPHEN 325 MG TABLET (FP) PO PRN ×2 (21:11)
[2019-11-15] MEDS ORDERED: METHOCARBAMOL 500 MG TABLET PO PRN (21:11)
[2019-11-15] MEDS ORDERED: ONDANSETRON *ODT* 4 MG TABLET SL PRN (21:11)
[2019-11-15] MEDS ORDERED: BISMUTH SUBSALICYLATE 524 MG/30 ML UD PO PRN (21:11)
[2019-11-15] MEDS ORDERED: MAGNESIUM HYDROX 2400MG/30ML ORAL SUSPENSION 30 ML CUP PO PRN (21:11)
[2019-11-15] MEDS ORDERED: MAGNESIUM CITRATE 300 ML BOTTLE PO PRN (21:11)
[2019-11-15] MEDS ORDERED: hydrOXYzine PAMOATE 25 MG CAPSULE (FP) PO PRN (21:11)
[2019-11-15] MEDS ORDERED: chlordiazePOXIDE HCL 25 MG CAPSULE PO ONE (21:11)
[2019-11-15] MEDS ORDERED: MELATONIN 5 MG TABLETS PO PRN (21:11)
[2019-11-15] MEDS ORDERED: IBUPROFEN 400 MG TABLET (FP) PO PRN (21:11)
[2019-11-15] MEDS ORDERED: MAG HYDROX/AL HYDROX/SIMETH 30 ML UNIT-DOSE CUP PO PRN (21:11)
[2019-11-15] MEDS ORDERED: chlordiazePOXIDE HCL 10 MG CAPSULE PO PRN (21:11)
[2019-11-15] MEDS ORDERED: ALBUTEROL SO4 8 GM HFA INHALER IH PRN (21:16)
[2019-11-15] MEDS ORDERED: PATIENT'S OWN MEDICATION (NON-FORMULARY) (Benzonatate 100 MG) PO PRN (21:16)
[2019-11-15] MEDS: risperiDONE 2 MG TABLET PO SCH (22:56)
[2019-11-15] MEDS: THIAMINE HCL 100 MG TABLET (FP) PO SCH (22:57)
[2019-11-15] MEDS: chlordiazePOXIDE HCL 25 MG CAPSULE PO SCH (23:01)
[2019-11-15] MEDS: MENTHOL/PHENOL 1 EACH UD MM PRN (23:11)
[2019-11-15] MEDS: INSULIN (LEVEMIR) 100 UNITS/ML UNITS SQ SCH (23:12)
[2019-11-15] MEDS: CLOTRIMAZOLE 1% CREAM 15 GM TUBE TP SCH (23:25)
[2019-11-16] MEDS: BENZTROPINE MESYLATE 0.5 MG TABLET (FP) PO SCH ×2 (00:03→09:57)
[2019-11-16] MEDS: chlordiazePOXIDE HCL 25 MG CAPSULE PO SCH ×3 (06:00→22:05)
[2019-11-16] MEDS: INSULIN SLIDING SCALE (NOVOLOG) 1 VIAL SQ SCH ×3 (06:03→17:03)
[2019-11-16] MEDS ORDERED: FLUoxetine HCL 10 MG CAPSULE (FP) PO SCH (07:00)
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
[2019-11-16] MEDS: LISINOPRIL 5 MG TABLET (FP) PO SCH (09:56)
[2019-11-16] MEDS: risperiDONE 2 MG TABLET PO SCH ×2 (09:57→22:06)
[2019-11-16] MEDS: PRENATAL VITAMINS W/ FOLIC ACID TABLET (FP) PO SCH (09:57)
[2019-11-16] MEDS: CLOTRIMAZOLE 1% CREAM 15 GM TUBE TP SCH ×2 (09:57→22:10)
[2019-11-16] MEDS: FENOFIBRIC ACID 135 MG CAP PO SCH (09:57)
[2019-11-16] MEDS: NICOTINE 21 MG/24 HOURS TOPICAL PATCH TD SCH (09:58)
[2019-11-16] MEDS ORDERED: FENOFIBRATE MICRONIZED 130 MG PO SCH (10:00)
[2019-11-16 10:23] LABS: HEMATOCRIT 39.9 % (32.4-45.2); HEMOGLOBIN 13.3 GM/dL (10.7-15.3); MCH 29.6 pg (25.7-33.7); MCHC 33.3 g/dl (32.0-36.0); MEAN CELL VOLUME 88.8 fl (80-96); MEAN PLT VOLUME 7.3 fl (7.5-11.1); PLATELET COUNT 268 K/MM3 (134-434); RDW 14.6 % (11.6-15.6); WHITE BLOOD COUNT 6.1 K/mm3 (4.0-10.0)
[2019-11-16 10:42] LABS: BILIRUBIN,TOTAL 0.4 mg/dL (0.2-1); BLOOD UREA NITROGEN 11.1 mg/dL (7-18); CALCIUM 9.8 mg/dL (8.5-10.1); CREATININE 0.6 mg/dL (0.55-1.3); POTASSIUM 4.7 mmol/L (3.5-5.1); TOT PROT 7.1 g/dl (6.4-8.2)
[2019-11-16] MEDS ORDERED: INSULIN SLIDING SCALE (NOVOLOG) 1 VIAL SQ ONE (11:46)
--- NOTE | 2019-11-16 13:08 | PN ---
[facility] CIWA - CIWA Score Nausea/Vomitin-Mild Nausea/No Vomiting Muscle Tremors: 3 Anxiety: 2 Agitation: 1-Slight > Activity Paroxysmal Sweats: 2 Orientation: 2-Disoriented Date<2 days (date of week time of day) Tacttile Disturbances: 0-None Auditory Disturbances: 0-None Visual Disturbances: 0-None Headache: 0-None Present CIWA-Ar Total Score: 11 S Progress Note (SOAP) Subjective: 63 years old female admitted on 11/15/19 for alcohol withdrawal sx management treating with librium detox regimen ambulating with cane on hallway steady gait patient acknowledged her alcoholic condition "sober 13 years" left 40 years ago has supportive daughters Objective: 11/16/19 13:10 Vital Signs Temperature 96.9 F L 11/16/19 09:33 Pulse Rate 92 H 11/16/19 09:33 Respiratory Rate 20 11/16/19 09:33 Blood Pressure 131/69 11/16/19 09:33 O2 Sat by Pulse Oximetry (%) Laboratory Last Values WBC 6.1 K/mm3 (4.0-10.0) 11/16/19 07:40 RBC 4.50 M/mm3 (3.60-5.2) 11/16/19 07:40 Hgb 13.3 GM/dL (10.7-15.3) 11/16/19 07:40 Hct 39.9 % (32.4-45.2) 11/16/19 07:40 MCV 88.8 fl (80-96) 11/16/19 07:40 MCH 29.6 pg (25.7-33.7) 11/16/19 07:40 MCHC 33.3 g/dl (32.0-36.0) 11/16/19 07:40 RDW 14.6 % (11.6-15.6) 11/16/19 07:40 Plt Count 268 K/MM3 (134-434) D 11/16/19 07:40 MPV 7.3 fl (7.5-11.1) L D 11/16/19 07:40 Sodium 139 mmol/L (136-145) 11/16/19 07:40 Potassium 4.7 mmol/L (3.5-5.1) 11/16/19 07:40 Chloride 106 mmol/L (98-107) 11/16/19 07:40 Carbon Dioxide 27 mmol/L (21-32) 11/16/19 07:40 Anion Gap 6 MMOL/L (8-16) L 11/16/19 07:40 BUN 11.1 mg/dL (7-18) 11/16/19 07:40 Creatinine 0.6 mg/dL (0.55-1.3) 11/16/19 07:40 Est GFR (CKD-EPI)AfAm 112.43 11/16/19 07:40 Est GFR (CKD-EPI)NonAf 97.01 11/16/19 07:40 POC Glucometer 303 UNITS (80-120) 11/16/19 11:25 Random Glucose 156 mg/dL (74-106) H 11/16/19 07:40 Calcium 9.8 mg/dL (8.5-10.1) 11/16/19 07:40 Total Bilirubin 0.4 mg/dL (0.2-1) 11/16/19 07:40 AST 15 U/L (15-37) 11/16/19 07:40 ALT 26 U/L (13-61) 11/16/19 07:40 Alkaline Phosphatase 61 U/L (45-117) 11/16/19 07:40 Total Protein 7.1 g/dl (6.4-8.2) 11/16/19 07:40 Albumin 4.0 g/dl (3.4-5.0) 11/16/19 07:40 RPR Titer Nonreactive (NONREACTIVE) 11/16/19 07:40 lab noted long history of diabetes 11/16/19 13:19 Assessment: 11/16/19 13:19 alcohol withdrawal Plan: librium regimen
[2019-11-16] MEDS: guaiFENesin 600 MG TABLET.ER (FP) PO SCH ×2 (15:36→22:05)
[2019-11-16 18:42] LABS: PH,URINE 6.5 (5.0-8.0); URINE APPEARANCE CLEAR; URINE BILIRUBIN NEGATIVE (NEGATIVE); URINE COLOR YELLOW; URINE GLUCOSE (UA) 3+ (NEGATIVE); URINE KETONE NEGATIVE (NEGATIVE); URINE LEUK ESTERASE NEGATIVE (NEGATIVE); URINE NITRITE NEGATIVE (NEGATIVE); URINE PROTEIN NEGATIVE (NEGATIVE); URINE UROBILINOGEN 0.2 mg/dL (0.2-1.0)
[2019-11-16] MEDS ORDERED: BENZTROPINE MESYLATE 0.5 MG TABLET (FP) PO SCH (22:00)
[2019-11-16] MEDS: THIAMINE HCL 100 MG TABLET (FP) PO SCH (22:06)
[2019-11-16] MEDS: INSULIN (LEVEMIR) 100 UNITS/ML UNITS SQ SCH (22:09)
[2019-11-16] MEDS: MENTHOL/PHENOL 1 EACH UD MM PRN (22:32)
[2019-11-17] MEDS: chlordiazePOXIDE 5 MG CAPSULE PO SCH ×3 (05:29→21:48)
[2019-11-17] MEDS ORDERED: INSULIN SLIDING SCALE (NOVOLOG) 1 VIAL SQ ONE (07:15)
[2019-11-17] MEDS: INSULIN SLIDING SCALE (NOVOLOG) 1 VIAL SQ SCH ×3 (07:21→17:17)
[2019-11-17] MEDS: FENOFIBRIC ACID 135 MG CAP PO SCH (10:03)
[2019-11-17] MEDS: NICOTINE 21 MG/24 HOURS TOPICAL PATCH TD SCH (10:03)
[2019-11-17] MEDS: FLUoxetine HCL 10 MG CAPSULE (FP) PO SCH (10:03)
[2019-11-17] MEDS: LISINOPRIL 5 MG TABLET (FP) PO SCH (10:03)
[2019-11-17] MEDS: CLOTRIMAZOLE 1% CREAM 15 GM TUBE TP SCH ×2 (10:03→21:50)
[2019-11-17] MEDS: guaiFENesin 600 MG TABLET.ER (FP) PO SCH ×2 (10:03→21:49)
[2019-11-17] MEDS: BENZTROPINE MESYLATE 1 MG TABLET (FP) PO SCH ×2 (10:03→21:49)
[2019-11-17] MEDS: risperiDONE 2 MG TABLET PO SCH ×2 (10:03→22:45)
[2019-11-17] MEDS: PRENATAL VITAMINS W/ FOLIC ACID TABLET (FP) PO SCH (10:03)
--- NOTE | 2019-11-17 11:45 | PN ---
S CIWA - CIWA Score Nausea/Vomitin-No Nausea/No Vomiting Muscle Tremors: 2 Anxiety: 2 Agitation: 2 Paroxysmal Sweats: 1-Minimal Palms Moist Orientation: 0-Oriented Tacttile Disturbances: 1-Very Mild Itch/Numbness Auditory Disturbances: 0-None Visual Disturbances: 0-None Headache: 0-None Present CIWA-Ar Total Score: 8 BHS Progress Note (SOAP) Subjective: 63 years old female admitted on 11/15/19 for alcohol withdrawal sx management treating with librium detox regimen patient has long history of positive ppd last x ray noted was 2017 chest x ray due to positive ppd Objective: 11/17/19 11:44 Vital Signs Temperature 96.7 F L 11/17/19 09:26 Pulse Rate 94 H 11/17/19 09:26 Respiratory Rate 20 11/17/19 09:26 Blood Pressure 118/66 11/17/19 09:26 O2 Sat by Pulse Oximetry (%) Laboratory Last Values WBC 6.1 K/mm3 (4.0-10.0) 11/16/19 07:40 RBC 4.50 M/mm3 (3.60-5.2) 11/16/19 07:40 Hgb 13.3 GM/dL (10.7-15.3) 11/16/19 07:40 Hct 39.9 % (32.4-45.2) 11/16/19 07:40 MCV 88.8 fl (80-96) 11/16/19 07:40 MCH 29.6 pg (25.7-33.7) 11/16/19 07:40 MCHC 33.3 g/dl (32.0-36.0) 11/16/19 07:40 RDW 14.6 % (11.6-15.6) 11/16/19 07:40 Plt Count 268 K/MM3 (134-434) D 11/16/19 07:40 MPV 7.3 fl (7.5-11.1) L D 11/16/19 07:40 Sodium 139 mmol/L (136-145) 11/16/19 07:40 Potassium 4.7 mmol/L (3.5-5.1) 11/16/19 07:40 Chloride 106 mmol/L (98-107) 11/16/19 07:40 Carbon Dioxide 27 mmol/L (21-32) 11/16/19 07:40 Anion Gap 6 MMOL/L (8-16) L 11/16/19 07:40 BUN 11.1 mg/dL (7-18) 11/16/19 07:40 Creatinine 0.6 mg/dL (0.55-1.3) 11/16/19 07:40 Est GFR (CKD-EPI)AfAm 112.43 11/16/19 07:40 Est GFR (CKD-EPI)NonAf 97.01 11/16/19 07:40 POC Glucometer 389 UNITS (80-120) 11/17/19 11:41 Random Glucose 156 mg/dL (74-106) H 11/16/19 07:40 Calcium 9.8 mg/dL (8.5-10.1) 11/16/19 07:40 Total Bilirubin 0.4 mg/dL (0.2-1) 11/16/19 07:40 AST 15 U/L (15-37) 11/16/19 07:40 ALT 26 U/L (13-61) 11/16/19 07:40 Alkaline Phosphatase 61 U/L (45-117) 11/16/19 07:40 Total Protein 7.1 g/dl (6.4-8.2) 11/16/19 07:40 Albumin 4.0 g/dl (3.4-5.0) 11/16/19 07:40 Urine Color Yellow 11/16/19 10:06 Urine Appearance Clear 11/16/19 10:06 Urine pH 6.5 (5.0-8.0) 11/16/19 10:06 Ur Specific [place] 1.013 (1.010-1.035) 11/16/19 10:06 Urine Protein Negative (NEGATIVE) 11/16/19 10:06 Urine Glucose (UA) 3+ (NEGATIVE) H 11/16/19 10:06 Urine Ketones Negative (NEGATIVE) 11/16/19 10:06 Urine Blood Negative (NEGATIVE) 11/16/19 10:06 Urine Nitrite Negative (NEGATIVE) 11/16/19 10:06 Urine Bilirubin Negative (NEGATIVE) 11/16/19 10:06 Urine Urobilinogen 0.2 mg/dL (0.2-1.0) 11/16/19 10:06 Ur Leukocyte Esterase Negative (NEGATIVE) 11/16/19 10:06 RPR Titer Nonreactive (NONREACTIVE) 11/16/19 07:40 lab noted 11/17/19 11:45 long history of diabetes health teaching on risks of glucose elevation Assessment: 11/17/19 11:45 alcohol withdrawal Plan: librium regimen
[2019-11-17] MEDS ORDERED: INSULIN (LEVEMIR) 100 UNITS/ML UNITS SQ SCH (16:07)
[2019-11-17] MEDS: INSULIN (LEVEMIR) 100 UNITS/ML UNITS SQ SCH (21:46)
[2019-11-17] MEDS: THIAMINE HCL 100 MG TABLET (FP) PO SCH (21:49)
[2019-11-18] MEDS ORDERED: chlordiazePOXIDE HCL 10 MG CAPSULE PO PRN
[2019-11-18] MEDS: chlordiazePOXIDE HCL 10 MG CAPSULE PO SCH ×3 (05:43→22:59)
[2019-11-18] MEDS: INSULIN SLIDING SCALE (NOVOLOG) 1 VIAL SQ SCH ×3 (07:40→17:30)
[2019-11-18] MEDS: FLUoxetine HCL 10 MG CAPSULE (FP) PO SCH (09:46)
[2019-11-18] MEDS: NICOTINE 21 MG/24 HOURS TOPICAL PATCH TD SCH (09:46)
[2019-11-18] MEDS: LISINOPRIL 5 MG TABLET (FP) PO SCH (09:46)
[2019-11-18] MEDS: CLOTRIMAZOLE 1% CREAM 15 GM TUBE TP SCH ×2 (09:46→22:59)
[2019-11-18] MEDS: FENOFIBRIC ACID 135 MG CAP PO SCH (09:46)
[2019-11-18] MEDS: guaiFENesin 600 MG TABLET.ER (FP) PO SCH ×2 (09:46→22:59)
[2019-11-18] MEDS: risperiDONE 2 MG TABLET PO SCH ×2 (09:46→22:59)
[2019-11-18] MEDS: PRENATAL VITAMINS W/ FOLIC ACID TABLET (FP) PO SCH (09:46)
[2019-11-18] MEDS: BENZTROPINE MESYLATE 1 MG TABLET (FP) PO SCH ×2 (09:47→23:00)
--- NOTE | 2019-11-18 12:41 | PN ---
[facility] CIWA - CIWA Score Nausea/Vomitin-No Nausea/No Vomiting Muscle Tremors: None Anxiety: 2 Agitation: 0-Normal Activity Paroxysmal Sweats: 2 Orientation: 0-Oriented Tacttile Disturbances: 0-None Auditory Disturbances: 0-None Visual Disturbances: 0-None Headache: 1-Very Mild CIWA-Ar Total Score: 5 BHS Progress Note (SOAP) Subjective: c/o mild withdrawal symptoms. Objective: 11/18/19 12:39 Vital Signs 11/18/19 11/18/19 06:36 09:18 Temperature 97.3 F L 98.2 F Pulse Rate 96 H 96 H Respiratory 18 17 Rate Blood Pressure 110/74 114/63 Laboratory Last Values WBC 6.1 K/mm3 (4.0-10.0) 11/16/19 07:40 RBC 4.50 M/mm3 (3.60-5.2) 11/16/19 07:40 Hgb 13.3 GM/dL (10.7-15.3) 11/16/19 07:40 Hct 39.9 % (32.4-45.2) 11/16/19 07:40 MCV 88.8 fl (80-96) 11/16/19 07:40 MCH 29.6 pg (25.7-33.7) 11/16/19 07:40 MCHC 33.3 g/dl (32.0-36.0) 11/16/19 07:40 RDW 14.6 % (11.6-15.6) 11/16/19 07:40 Plt Count 268 K/MM3 (134-434) D 11/16/19 07:40 MPV 7.3 fl (7.5-11.1) L D 11/16/19 07:40 Sodium 139 mmol/L (136-145) 11/16/19 07:40 Potassium 4.7 mmol/L (3.5-5.1) 11/16/19 07:40 Chloride 106 mmol/L (98-107) 11/16/19 07:40 Carbon Dioxide 27 mmol/L (21-32) 11/16/19 07:40 Anion Gap 6 MMOL/L (8-16) L 11/16/19 07:40 BUN 11.1 mg/dL (7-18) 11/16/19 07:40 Creatinine 0.6 mg/dL (0.55-1.3) 11/16/19 07:40 Est GFR (CKD-EPI)AfAm 112.43 11/16/19 07:40 Est GFR (CKD-EPI)NonAf 97.01 11/16/19 07:40 POC Glucometer 338 UNITS (80-120) 11/18/19 11:51 Random Glucose 156 mg/dL (74-106) H 11/16/19 07:40 Calcium 9.8 mg/dL (8.5-10.1) 11/16/19 07:40 Total Bilirubin 0.4 mg/dL (0.2-1) 11/16/19 07:40 AST 15 U/L (15-37) 11/16/19 07:40 ALT 26 U/L (13-61) 11/16/19 07:40 Alkaline Phosphatase 61 U/L (45-117) 11/16/19 07:40 Total Protein 7.1 g/dl (6.4-8.2) 11/16/19 07:40 Albumin 4.0 g/dl (3.4-5.0) 11/16/19 07:40 Urine Color Yellow 11/16/19 10:06 Urine Appearance Clear 11/16/19 10:06 Urine pH 6.5 (5.0-8.0) 11/16/19 10:06 Ur Specific [place] 1.013 (1.010-1.035) 11/16/19 10:06 Urine Protein Negative (NEGATIVE) 11/16/19 10:06 Urine Glucose (UA) 3+ (NEGATIVE) H 11/16/19 10:06 Urine Ketones Negative (NEGATIVE) 11/16/19 10:06 Urine Blood Negative (NEGATIVE) 11/16/19 10:06 Urine Nitrite Negative (NEGATIVE) 11/16/19 10:06 Urine Bilirubin Negative (NEGATIVE) 11/16/19 10:06 Urine Urobilinogen 0.2 mg/dL (0.2-1.0) 11/16/19 10:06 Ur Leukocyte Esterase Negative (NEGATIVE) 11/16/19 10:06 RPR Titer Nonreactive (NONREACTIVE) 11/16/19 07:40 labs noted. Assessment: 11/18/19 12:39 AOX3, in no acute respiratory distress. Full ROM, ambulating in the unit. Mild Withdrawal symptoms. For d/c tomorrow. Plan: continue detox. D/C in AM.
[2019-11-18] MEDS: THIAMINE HCL 100 MG TABLET (FP) PO SCH (23:00)
[2019-11-18] MEDS: INSULIN (LEVEMIR) 100 UNITS/ML UNITS SQ SCH (23:00)
[2019-11-19] MEDS ORDERED: chlordiazePOXIDE HCL 10 MG CAPSULE PO ONE (05:00)
[2019-11-19] MEDS ORDERED: INSULIN SLIDING SCALE (NOVOLOG) 1 VIAL SQ ONE (06:56)
[2019-11-19] MEDS: INSULIN SLIDING SCALE (NOVOLOG) 1 VIAL SQ SCH ×2 (07:10→12:11)
[2019-11-19 09:18] VITALS: BP 109/77; PULSE 82; TEMP 97
[2019-11-19] MEDS: BENZTROPINE MESYLATE 1 MG TABLET (FP) PO SCH (10:11)
[2019-11-19] MEDS: PRENATAL VITAMINS W/ FOLIC ACID TABLET (FP) PO SCH (10:12)
[2019-11-19] MEDS: FLUoxetine HCL 10 MG CAPSULE (FP) PO SCH (10:12)
[2019-11-19] MEDS: CLOTRIMAZOLE 1% CREAM 15 GM TUBE TP SCH (10:12)
[2019-11-19] MEDS: risperiDONE 2 MG TABLET PO SCH (10:12)
[2019-11-19] MEDS: guaiFENesin 600 MG TABLET.ER (FP) PO SCH (10:12)
[2019-11-19] MEDS: NICOTINE 21 MG/24 HOURS TOPICAL PATCH TD SCH (10:13)
[2019-11-19] MEDS: FENOFIBRIC ACID 135 MG CAP PO SCH (10:13)
[2019-11-19] MEDS: LISINOPRIL 5 MG TABLET (FP) PO SCH (10:13)
--- NOTE | 2019-11-19 14:23 | DS ---
[facility] Detox Discharge Summary Admission Date: 11/15/19 Discharge Date: 11/19/19 - History Present History: Alcohol Dependence Additional Comments: Pt is medically cleared and discharged today to [facility] for continued management. Pt completed the detox protocol. Pt is encouraged to follow with the Rehab protocol. Pt verbalized understanding of the information given. Pt is AOX3 and in no acute respiratory distress. Pertinent Past History: h/o DM, HTN, dyslipidemia, asthma, and alcohol use disorder. - Physical Exam Results Vital Signs: Vital Signs Temperature 97.0 F L 11/19/19 09:05 Pulse Rate 82 11/19/19 09:05 Respiratory Rate 16 11/19/19 09:05 Blood Pressure 109/77 11/19/19 09:05 O2 Sat by Pulse Oximetry (%) Vital Signs 11/19/19 11/19/19 06:26 09:05 Temperature 97.6 F 97.0 F L Pulse Rate 85 82 Respiratory 18 16 Rate Blood Pressure 109/70 109/77 Lab Results WBC 6.1 K/mm3 (4.0-10.0) 11/16/19 07:40 RBC 4.50 M/mm3 (3.60-5.2) 11/16/19 07:40 Hgb 13.3 GM/dL (10.7-15.3) 11/16/19 07:40 Hct 39.9 % (32.4-45.2) 11/16/19 07:40 MCV 88.8 fl (80-96) 11/16/19 07:40 MCHC 33.3 g/dl (32.0-36.0) 11/16/19 07:40 RDW 14.6 % (11.6-15.6) 11/16/19 07:40 Plt Count 268 K/MM3 (134-434) D 11/16/19 07:40 Sodium 139 mmol/L (136-145) 11/16/19 07:40 Potassium 4.7 mmol/L (3.5-5.1) 11/16/19 07:40 Chloride 106 mmol/L (98-107) 11/16/19 07:40 Carbon Dioxide 27 mmol/L (21-32) 11/16/19 07:40 Anion Gap 6 MMOL/L (8-16) L 11/16/19 07:40 BUN 11.1 mg/dL (7-18) 11/16/19 07:40 Creatinine 0.6 mg/dL (0.55-1.3) 11/16/19 07:40 Random Glucose 156 mg/dL (74-106) H 11/16/19 07:40 Calcium 9.8 mg/dL (8.5-10.1) 11/16/19 07:40 Labs noted. Pertinent Admission Physical Exam Findings: withdrawal symptoms. - Treatment Hospital Course: Detox Protocol Followed, Detoxed Safely, Responded well, Discharged Condition Good, Rehab Referral Accepted Patient has Accepted a Rehab Referral to: [facility]. - Medication Discharge Medications: Ambulatory Orders Albuterol Sulfate Inhaler - [Ventolin Hfa Inhaler -] 2 inh PO Q4H PRN 10/09/17 Temazepam [Restoril] 15 mg PO HS PRN 10/09/17 Benztropine Mesylate [Cogentin -] 0.5 mg PO BID #60 tablet 10/22/17 Lisinopril [Zestril] 5 mg PO DAILY 30 Days #30 tablet 10/22/17 Benzonatate [Tessalon Pearls -] 100 mg PO TID 11/15/19 Fenofibrate,Micronized [Fenofibrate] 130 mg PO DAILY 11/15/19 Fluoxetine HCl [Prozac -] 30 mg PO AM 11/15/19 Insulin Glargine,Hum.rec.anlog [Basaglar Kwikpen U-100] 30 unit SQ HS 11/15/19 Insulin Lispro [Admelog] 12 units SQ TID 11/15/19 Risperidone [Risperdal -] 2 mg PO BID 11/15/19 Fenofibric Acid [Trilipix -] 135 mg PO DAILY 11/19/19 - Diagnosis (1) Alcohol dependence with uncomplicated withdrawal Status: Acute (2) Asthma Status: Chronic Qualifiers: Asthma severity: mild Asthma persistence: intermittent Asthma complication type: with status asthmaticus Qualified Code(s): J45.22 - Mild intermittent asthma with status asthmaticus (3) Diabetes mellitus type II, uncontrolled Status: Chronic (4) GERD (gastroesophageal reflux disease) Status: Chronic Qualifiers: Esophagitis presence: without esophagitis Qualified Code(s): K21.9 - Gastro -esophageal reflux disease without esophagitis (5) Hepatitis C Status: Chronic Qualifiers: Viral hepatitis chronicity: carrier Qualified Code(s): B18.2 - Chronic viral hepatitis C (6) Hypertension Status: Chronic Qualifiers: Hypertension type: essential hypertension Qualified Code(s): I10 - Essential (primary) hypertension (7) Nicotine dependence Status: Chronic Qualifiers: Nicotine product type: cigarettes Substance use status: in withdrawal Qualified Code(s): F17.213 - Nicotine dependence, cigarettes, with withdrawal (8) Seizure Status: Chronic (9) Use of cane as ambulatory aid Status: Chronic - AMA Did Patient Leave Against Medical Advice: No
== END 2019-11-19 12:45 | disposition other institution (70) | DRG 775 ==
LOC: YASAS 15:07 → Y3N 21:37
PROVIDERS: ADMIT Allergy & Immunology; ATTEND Allergy & Immunology
PROC: HZ2ZZZZ Detoxification Services for Substance Abuse Treatment (ICD-10-PCS; principal; 2019-11-15)
DX: F10.230 Alcohol dependence with withdrawal, uncomplicated (principal); F17.210 Nicotine dependence, cigarettes, uncomplicated; F31.81 Bipolar II disorder; F25.0 Schizoaffective disorder, bipolar type; I10 Essential (primary) hypertension; E11.65 Type 2 diabetes mellitus with hyperglycemia; J45.22 Mild intermittent asthma with status asthmaticus; K21.9 Gastro-esophageal reflux disease without esophagitis; B18.2 Chronic viral hepatitis C; E78.5 Hyperlipidemia, unspecified; R26.2 Difficulty in walking, not elsewhere classified; Z99.89 Dependence on other enabling machines and devices; Z79.4 Long term (current) use of insulin; Z91.410 Personal history of adult physical and sexual abuse; Z86.69 Personal history of other diseases of the nervous system and sense organs; Z59.0 Homelessness
CPT/HCPCS: 36415; 71046-TC-FY; 80053; 81003; 82962; 85027; 86593

== ENCOUNTER 2019-11-19 12:41 | Inpatient (IN) | payer OTHER ==
[2019-11-19] MEDS ORDERED: MAGNESIUM HYDROX 2400MG/30ML ORAL SUSPENSION 30 ML CUP PO PRN (14:34)
[2019-11-19] MEDS ORDERED: LOPERAMIDE HCL 2 MG CAPSULE PO PRN (14:34)
[2019-11-19] MEDS ORDERED: guaiFENesin 200 MG/10 ML 10 ML UNIT-DOSE CUPS PO PRN (14:34)
[2019-11-19] MEDS ORDERED: MENTHOL/PHENOL 1 EACH UD MM PRN (14:34)
[2019-11-19] MEDS ORDERED: P-EPHED 60MG/TRIPROLIDI 2.5MG TABLET PO PRN (14:34)
[2019-11-19] MEDS ORDERED: MAG HYDROX/AL HYDROX/SIMETH 30 ML UNIT-DOSE CUP PO PRN (14:34)
--- NOTE | 2019-11-19 14:34 | HP ---
[facility] Rehab Assess/Revision - Admission History Admitted to Rehab from: [facility] Date of Admission to Rehab: 11/19/2019 - Findings Detox History & Physical reviewed: Yes Concur with findings: Yes Inpatient Rehab Admission - Rehab Decision to Admit Inpatient rehab admission?: Yes - Initial Determination Are CD services needed?: Yes Free of communicable disease: Yes Not in need of hospitalization: Yes - Rehab Admission Criteria Previous failed treatment: Yes Poor recovery environment: Yes Comorbidities: Yes Lacks judgement: No Patient is meeting Inpatient Rehab admission criteria:: Yes
[2019-11-19] MEDS ORDERED: ALBUTEROL SO4 8 GM HFA INHALER IH PRN (14:43)
[2019-11-19] MEDS: INSULIN SLIDING SCALE (NOVOLOG) 1 VIAL SQ SCH (16:49)
--- NOTE | 2019-11-19 21:37 | PN ---
[facility] Progress Note Note: Psychiatry Attending's note : Called by nurse to enter orders for medications. Patient is now transferred to [address] From [address] [place] [address]. Detoxification completed. No issues. Chart reviewed. Records at [facility] : notes revisited. H + P report read. Consult note (11/16/19) by PHYSICIST [employer] Crystal Kulkarni : appreciated. Ms Mims presents with an extensive history of mental illness. Diagnosed with bipolar disorder co-morbid with alcohol use disorder. Demographics : 63 y/o [place]-born female, homeless, SSI recipient. Patient could not come to telephone. Reported asleep by nurse on duty. Medications reviewed. Already prescribed at [address] [place] [address]. Continuity requested. Recommendations : . risperdal 1 mg po bid . cogentin 0.5 mg po bid . SSRI (prozac) held until verification. . Bottles of medications not with patient (as previously reported). . Obtain collateral history ([facility] provider/relatives). Psychiatry-Liaison will follow.
[2019-11-19] MEDS: INSULIN (LEVEMIR) 100 UNITS/ML UNITS SQ SCH (21:41)
[2019-11-19] MEDS: MELATONIN 5 MG TABLETS PO PRN (21:43)
[2019-11-19] MEDS ORDERED: PT OWN MED DRAWER 7, Y5N ONE (21:43)
[2019-11-19] MEDS: THIAMINE HCL 100 MG TABLET (FP) PO SCH (21:43)
[2019-11-19] MEDS: guaiFENesin 600 MG TABLET.ER (FP) PO SCH (22:40)
[2019-11-20] MEDS: INSULIN SLIDING SCALE (NOVOLOG) 1 VIAL SQ SCH ×3 (06:23→16:55)
[2019-11-20] MEDS: NICOTINE 21 MG/24 HOURS TOPICAL PATCH TD SCH (09:51)
[2019-11-20] MEDS: PRENATAL VITAMINS W/ FOLIC ACID TABLET (FP) PO SCH (09:52)
[2019-11-20] MEDS: LISINOPRIL 5 MG TABLET (FP) PO SCH (09:52)
[2019-11-20] MEDS: risperiDONE 1 MG TABLET PO SCH ×2 (09:52→21:11)
[2019-11-20] MEDS: FENOFIBRIC ACID 135 MG CAP PO SCH (09:53)
[2019-11-20] MEDS: BENZTROPINE MESYLATE 0.5 MG TABLET (FP) PO SCH ×2 (09:53→21:12)
[2019-11-20] MEDS ORDERED: PT OWN MED DRAWER 7, Y5N ONE ×2 (09:54→21:12)
[2019-11-20] MEDS: guaiFENesin 600 MG TABLET.ER (FP) PO SCH ×2 (10:51→21:13)
[2019-11-20] MEDS ORDERED: INSULIN (NOVOLOG) ASPART 100 UNITS/ML 10ML VIAL ONE ×3 (12:09→22:05)
[2019-11-20] MEDS: TOLNAFTATE 1% CREAM 15 GM TUBE TP SCH ×2 (12:10→21:13)
[2019-11-20] MEDS: INSULIN (LEVEMIR) 100 UNITS/ML UNITS SQ SCH (21:10)
[2019-11-20] MEDS: MELATONIN 5 MG TABLETS PO PRN (21:11)
[2019-11-20] MEDS: THIAMINE HCL 100 MG TABLET (FP) PO SCH (21:11)
[2019-11-21] MEDS ORDERED: PT OWN MED DRAWER 7, Y5N ONE ×2 (06:24→08:29)
[2019-11-21] MEDS ORDERED: INSULIN (NOVOLOG) ASPART 100 UNITS/ML 10ML VIAL ONE ×4 (07:32→23:12)
[2019-11-21] MEDS: INSULIN SLIDING SCALE (NOVOLOG) 1 VIAL SQ SCH ×3 (07:33→17:10)
[2019-11-21] MEDS: PRENATAL VITAMINS W/ FOLIC ACID TABLET (FP) PO SCH (09:55)
[2019-11-21] MEDS: guaiFENesin 600 MG TABLET.ER (FP) PO SCH ×2 (09:55→21:15)
[2019-11-21] MEDS: BENZTROPINE MESYLATE 0.5 MG TABLET (FP) PO SCH (09:55)
[2019-11-21] MEDS: NICOTINE 21 MG/24 HOURS TOPICAL PATCH TD SCH (09:55)
[2019-11-21] MEDS: LISINOPRIL 5 MG TABLET (FP) PO SCH (09:56)
[2019-11-21] MEDS: risperiDONE 1 MG TABLET PO SCH (09:56)
[2019-11-21] MEDS: TOLNAFTATE 1% CREAM 15 GM TUBE TP SCH ×2 (09:57→21:17)
[2019-11-21] MEDS: FENOFIBRIC ACID 135 MG CAP PO SCH (09:57)
--- NOTE | 2019-11-21 12:52 | PN ---
[facility] Progress Note Note: Pt is a 63 y/o female with a hx of ANJALI-alcohol admitted to rehab from [address] on 11/19/19. pt has a PMHx of Asthma,DM and HTN. [facility] B[facility], Depression, hx of auditory hallucinations- "I hear a voice(it's like a bomb. Pipe bombs, all different bombs, paranoid"). Pt has been seen by psych consult. Pt reports she has a psychiatric doctor at [address] [place] [address](pt does not remember name but says she has all her papers in security on admission). Pt reports she was referred from [facility] because went to her program, [facility](on [address]/ [place] ) drunk on . Reports she has appointment to see her psychiatrist on 11/23/19 and therapist on 11/25/19. Pt c/o dry mouth. Vital Signs - 24 hr 11/21/19 11/21/19 11/21/19 00:30 03:30 07:04 Temperature 98.1 F Pulse Rate 77 Respiratory 18 18 16 Rate Blood Pressure 98/60 11/21/19 09:04 Temperature Pulse Rate 86 Respiratory 17 Rate Blood Pressure 109/70 Laboratory Tests 11/19/19 11/19/19 11/20/19 16:48 21:40 06:18 POC Glucometer 148 358 148 11/20/19 11/20/19 11/20/19 12:06 16:52 21:09 POC Glucometer 331 306 223 11/21/19 11/21/19 06:23 11:55 POC Glucometer 203 327 labs noted Alert o x 3, denies s/h/i; denies hallucinations at this time. communicating appropriately and pleasant. nad oob ambulating with steady gait with cane. A/P new rehab pt s/p detox maintain saftey pt's current meds reviewed. d/w pt to increase po fluids
--- NOTE | 2019-11-21 17:15 | PN ---
Psychiatric Progress Note Vital Signs: Vital Signs Period Temp Pulse Resp BP Sys/Vance Pulse Ox Last 24 Hr 98.1 F 77-86 16-18 98-109/60-70 Date of Session: 11/21/19 Chief Complaint:: " I feel fine. I have no complaints. " HPI: Day 3 of rehabilitation for this 63 y/o [place]-born female addressing her ANJALI (alcohol) issue co-morbid with schizoaffective disorder (versus paranoid schizophrenia). Psychiatric follow-up is conducted for verification of medications and re-evaluation of mental status. ROS: Patient is alert and fully oriented, ambulatory, visible on the unit and pleasant on approach. No complaints offered. Current Medications: Active Medications Generic Name Dose Route Start Last Admin Trade Name Freq PRN Reason Stop Dose Admin Acetaminophen 650 mg 11/19/19 14:34 Tylenol - PO Q6H PRN FEVER Al Hydroxide/Mg Hydroxide 30 ml 11/19/19 14:34 Mylanta Oral Suspension - PO Q6H PRN DYSPEPSIA Albuterol Sulfate 2 puff 11/19/19 14:43 Ventolin Hfa Inhaler - IH Q4H PRN SHORT OF BREATH/WHEEZING Benztropine Mesylate 0.5 mg 11/20/19 10:00 11/21/19 09:55 Cogentin - PO 0.5 mg BID TRISH Administration Eucalyptus/Menthol/Phenol/Sorbitol 1 each 11/19/19 14:34 Cepastat Lozenge - MM Q4H PRN SORE THROAT Fenofibric Acid 135 mg 11/20/19 10:00 11/21/19 09:57 Trilipix - PO 135 mg DAILY TRISH Administration Guaifenesin 600 mg 11/19/19 22:00 11/21/19 09:55 Mucinex - PO 600 mg BID TRISH Administration Hydroxyzine Pamoate 25 mg 11/19/19 14:34 Vistaril - PO Q6H PRN AGITATION Ibuprofen 400 mg 11/19/19 14:34 Motrin - PO Q6H PRN Pain Level 4-6 Insulin Aspart 1 vial 11/19/19 16:30 11/21/19 17:10 Novolog Vial Sliding Scale - SQ 2 units TIDAC TRISH Administration Protocol Insulin Detemir 30 units 11/19/19 22:00 11/20/19 21:10 Levemir Vial SQ 30 units HS TRISH Administration Lisinopril 5 mg 11/20/19 10:00 11/21/19 09:56 Prinivil PO 5 mg DAILY TRISH Administration Loperamide HCl 4 mg 11/19/19 14:34 Imodium - PO Q6H PRN DIARRHEA Magnesium Hydroxide 30 ml 11/19/19 14:34 Milk Of Magnesia - PO DAILY PRN CONSTIPATION Melatonin 5 mg 11/19/19 22:00 11/20/19 21:11 Melatonin PO 5 mg HS PRN Administration INSOMNIA Nicotine 21 mg 11/20/19 10:00 11/21/19 09:55 Nicoderm Patch - TD 21 mg DAILY TRISH Administration Multivit/Folic Acid/Iron 1 tab 11/20/19 10:00 11/21/19 09:55 Vitamins (Sjr) - PO 1 tab DAILY TRISH Administration Pseudoephedrine/Triprolidine 1 combo 11/19/19 14:34 Actifed - PO TID PRN NASAL CONGESTION Risperidone 1 mg 11/20/19 10:00 11/21/19 09:56 Risperdal - PO 1 mg BID TRISH Administration Thiamine HCl 100 mg 11/19/19 22:00 11/20/19 21:11 Vitamin B1 - PO 100 mg HS TRISH Administration Tolnaftate 1 applic 11/20/19 12:00 11/21/19 09:57 Tinactin 1% Cream - TP 1 applic BID TRISH Administration Medication(s) Change(s): Bottles of medications seen by this consumer loan underwriter (prozac 40 mg/day + risperdal 2 mg/bid dated 11/01/19). No bottles for cogentin. Patient reports that she is not on cogentin. She sees a psychiatrist, Dr Benito Alanis, at [facility] in [place] ([phone]). She attends the [facility] ([phone]). Current Side Effect: Yes (dry mouth from benztropine mesylate) Lab tests ordered: No Lab tests reviewed: Yes Provider note:: Chart reviewed. Multidisciplinary progress notes are read. Psychiatric consult note of 11/16/19 by NELLY Kulkarni : appreciated. Met with the patient. Ms Leggett is able to communicate in spanish. Conversant, good historian. At ease with interviewer. Coherent and goal-directed. Speaks decent spanish. 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 Ms Leggett states that she is in good rapport with her relatives. She indicates that, after discharge from [facility] , she contemplates returning to [facility] to live with a sister. Calm mood. No hallucinations or delusions elicited at time of this examination. Pleasant and appropriate behavior. Patient is adherent with medications and she follows redirections without difficulty. Mental status is stable See MSE report for details. Medications are well tolerated. Side effects/benefits of prozac + cogentin + risperidone are discussed with patient in this session. Made aware of potential for dry mouth, constipation, blurred vision, abnormal involuntary movement disorders (dystonia, akathisisa, tardive dyskinesia), neuroleptic malignant syndrome and carediovascular adverse events. Ms Leggett gave consent ( verbal) to this consumer loan underwriter. Patient is at baseline. Good hospital course. Total face to face time:: 35 Mental Status Exam - Mental Status Exam Alert and Oriented to: Time, Place, Person Cognitive Function: Good Patient Appearance: Well Groomed (short stature, overweight, neatly groomed) Mood: Hopeful, Euthymic Affect: Appropriate, Normal Range Patient Behavior: Appropriate (friendly and well-mannered), Cooperative Speech Pattern: Clear, Appropriate (good and reliable historian) Voice Loudness: Normal Thought Process: Intact, Goal Oriented Thought Disorder: Not Present Hallucinations: Denies Suicidal Ideation: Denies Homicidal Ideation: Denies Insight/Judgement: Fair Sleep: Well Appetite: Good Gait/Station: Other (ambulates with a cane) Psychiatric Treatment Plan - Problem List (1) Alcohol dependence Current Visit: Yes Comment: . (2) Nicotine dependence Current Visit: Yes Qualifiers: Nicotine product type: cigarettes Substance use status: in withdrawal Qualified Code(s): F17.213 - Nicotine dependence, cigarettes, with withdrawal Comment: . (3) Schizoaffective disorder Current Visit: Yes Qualifiers: Schizoaffective disorder type: bipolar Qualified Code(s): F25.0 - Schizoaffective disorder, bipolar type Comment: .
[2019-11-21] MEDS: INSULIN (LEVEMIR) 100 UNITS/ML UNITS SQ SCH (21:13)
[2019-11-21] MEDS: MELATONIN 5 MG TABLETS PO PRN (21:15)
[2019-11-21] MEDS: THIAMINE HCL 100 MG TABLET (FP) PO SCH (21:15)
[2019-11-21] MEDS: risperiDONE 2 MG TABLET PO SCH (21:16)
[2019-11-22] MEDS: INSULIN SLIDING SCALE (NOVOLOG) 1 VIAL SQ SCH ×3 (08:15→16:31)
[2019-11-22] MEDS ORDERED: INSULIN (NOVOLOG) ASPART 100 UNITS/ML 10ML VIAL ONE ×3 (08:16→16:30)
[2019-11-22] MEDS ORDERED: PT OWN MED DRAWER 7, Y5N ONE ×2 (09:06→19:23)
[2019-11-22] MEDS: risperiDONE 1 MG TABLET PO SCH (09:55)
[2019-11-22] MEDS: PRENATAL VITAMINS W/ FOLIC ACID TABLET (FP) PO SCH (09:55)
[2019-11-22] MEDS: FENOFIBRIC ACID 135 MG CAP PO SCH (09:56)
[2019-11-22] MEDS: LISINOPRIL 5 MG TABLET (FP) PO SCH (09:56)
[2019-11-22] MEDS: TOLNAFTATE 1% CREAM 15 GM TUBE TP SCH ×2 (09:56→21:00)
[2019-11-22] MEDS: NICOTINE 21 MG/24 HOURS TOPICAL PATCH TD SCH (09:58)
[2019-11-22] MEDS: FLUoxetine HCL 10 MG CAPSULE PO SCH (12:25)
[2019-11-22] MEDS: guaiFENesin 600 MG TABLET.ER (FP) PO SCH ×2 (12:25→20:59)
[2019-11-22] MEDS: THIAMINE HCL 100 MG TABLET (FP) PO SCH (20:59)
[2019-11-22] MEDS: MELATONIN 5 MG TABLETS PO PRN (20:59)
[2019-11-22] MEDS: INSULIN (LEVEMIR) 100 UNITS/ML UNITS SQ SCH (20:59)
[2019-11-22] MEDS: risperiDONE 2 MG TABLET PO SCH (20:59)
[2019-11-23] MEDS: INSULIN SLIDING SCALE (NOVOLOG) 1 VIAL SQ SCH ×3 (06:39→16:39)
[2019-11-23] MEDS ORDERED: PT OWN MED DRAWER 7, Y5N ONE ×4 (08:37→21:55)
[2019-11-23] MEDS: NICOTINE 21 MG/24 HOURS TOPICAL PATCH TD SCH (09:49)
[2019-11-23] MEDS: guaiFENesin 600 MG TABLET.ER (FP) PO SCH ×2 (09:49→21:55)
[2019-11-23] MEDS: LISINOPRIL 5 MG TABLET (FP) PO SCH (09:49)
[2019-11-23] MEDS: PRENATAL VITAMINS W/ FOLIC ACID TABLET (FP) PO SCH (09:49)
[2019-11-23] MEDS: risperiDONE 1 MG TABLET PO SCH (09:50)
[2019-11-23] MEDS: FLUoxetine HCL 10 MG CAPSULE PO SCH (09:50)
[2019-11-23] MEDS: FENOFIBRIC ACID 135 MG CAP PO SCH (09:51)
[2019-11-23] MEDS: TOLNAFTATE 1% CREAM 15 GM TUBE TP SCH ×2 (09:51→21:56)
[2019-11-23] MEDS ORDERED: INSULIN (NOVOLOG) ASPART 100 UNITS/ML 10ML VIAL ONE ×3 (11:49→22:48)
[2019-11-23] MEDS: INSULIN (LEVEMIR) 100 UNITS/ML UNITS SQ SCH (21:51)
[2019-11-23] MEDS: risperiDONE 2 MG TABLET PO SCH (21:55)
[2019-11-23] MEDS: MELATONIN 5 MG TABLETS PO PRN (21:55)
[2019-11-23] MEDS: THIAMINE HCL 100 MG TABLET (FP) PO SCH (21:56)
[2019-11-24] MEDS ORDERED: INSULIN (NOVOLOG) ASPART 100 UNITS/ML 10ML VIAL ONE ×3 (07:41→22:07)
[2019-11-24] MEDS: INSULIN SLIDING SCALE (NOVOLOG) 1 VIAL SQ SCH ×3 (07:41→16:33)
[2019-11-24] MEDS: risperiDONE 1 MG TABLET PO SCH (09:43)
[2019-11-24] MEDS: FLUoxetine HCL 10 MG CAPSULE PO SCH (09:43)
[2019-11-24] MEDS: FENOFIBRIC ACID 135 MG CAP PO SCH (09:43)
[2019-11-24] MEDS: guaiFENesin 600 MG TABLET.ER (FP) PO SCH ×2 (09:43→21:20)
[2019-11-24] MEDS: PRENATAL VITAMINS W/ FOLIC ACID TABLET (FP) PO SCH (09:43)
[2019-11-24] MEDS: TOLNAFTATE 1% CREAM 15 GM TUBE TP SCH ×2 (09:44→21:20)
[2019-11-24] MEDS: NICOTINE 21 MG/24 HOURS TOPICAL PATCH TD SCH (09:44)
[2019-11-24] MEDS: LISINOPRIL 5 MG TABLET (FP) PO SCH (10:50)
[2019-11-24] MEDS: BACITRACIN 15 GM TUBE TOPICAL OINTMENT TP SCH ×2 (10:55→21:21)
[2019-11-24] MEDS: THIAMINE HCL 100 MG TABLET (FP) PO SCH (21:17)
[2019-11-24] MEDS: INSULIN (LEVEMIR) 100 UNITS/ML UNITS SQ SCH (21:17)
[2019-11-24] MEDS: risperiDONE 2 MG TABLET PO SCH (21:17)
[2019-11-24] MEDS: MELATONIN 5 MG TABLETS PO PRN (21:17)
[2019-11-24] MEDS ORDERED: PT OWN MED DRAWER 7, Y5N ONE (21:20)
[2019-11-24] MEDS ORDERED: INSULIN (LEVEMIR) 100 UNITS/ML UNITS SQ ONE (22:08)
[2019-11-25] MEDS: INSULIN SLIDING SCALE (NOVOLOG) 1 VIAL SQ SCH ×3 (07:43→16:40)
[2019-11-25] MEDS ORDERED: INSULIN (NOVOLOG) ASPART 100 UNITS/ML 10ML VIAL ONE ×3 (07:50→22:15)
[2019-11-25] MEDS ORDERED: PT OWN MED DRAWER 7, Y5N ONE (08:37)
[2019-11-25] MEDS: ACETAMINOPHEN 325 MG TABLET (FP) PO PRN (09:16)
[2019-11-25] MEDS: PRENATAL VITAMINS W/ FOLIC ACID TABLET (FP) PO SCH (09:53)
[2019-11-25] MEDS: guaiFENesin 600 MG TABLET.ER (FP) PO SCH ×2 (09:53→21:24)
[2019-11-25] MEDS: TOLNAFTATE 1% CREAM 15 GM TUBE TP SCH ×2 (09:53→21:25)
[2019-11-25] MEDS: NICOTINE 21 MG/24 HOURS TOPICAL PATCH TD SCH (09:54)
[2019-11-25] MEDS: FENOFIBRIC ACID 135 MG CAP PO SCH (09:54)
[2019-11-25] MEDS: risperiDONE 1 MG TABLET PO SCH (09:54)
[2019-11-25] MEDS: BACITRACIN 15 GM TUBE TOPICAL OINTMENT TP SCH ×2 (09:54→21:23)
[2019-11-25] MEDS: FLUoxetine HCL 10 MG CAPSULE PO SCH (09:54)
[2019-11-25] MEDS: LISINOPRIL 5 MG TABLET (FP) PO SCH (09:54)
[2019-11-25] MEDS: INSULIN (LEVEMIR) 100 UNITS/ML UNITS SQ SCH (21:21)
[2019-11-25] MEDS: THIAMINE HCL 100 MG TABLET (FP) PO SCH (21:22)
[2019-11-25] MEDS: risperiDONE 2 MG TABLET PO SCH (21:22)
[2019-11-25] MEDS ORDERED: INSULIN (LEVEMIR) 100 UNITS/ML UNITS SQ ONE (22:15)
[2019-11-26] MEDS ORDERED: INSULIN (NOVOLOG) ASPART 100 UNITS/ML 10ML VIAL ONE ×3 (07:38→16:48)
[2019-11-26] MEDS: INSULIN SLIDING SCALE (NOVOLOG) 1 VIAL SQ SCH ×3 (07:39→16:46)
[2019-11-26] MEDS ORDERED: PT OWN MED DRAWER 7, Y5N ONE ×3 (08:12→18:41)
[2019-11-26] MEDS: BACITRACIN 15 GM TUBE TOPICAL OINTMENT TP SCH ×2 (09:33→21:51)
[2019-11-26] MEDS: NICOTINE 21 MG/24 HOURS TOPICAL PATCH TD SCH (09:33)
[2019-11-26] MEDS: guaiFENesin 600 MG TABLET.ER (FP) PO SCH ×2 (09:33→21:52)
[2019-11-26] MEDS: PRENATAL VITAMINS W/ FOLIC ACID TABLET (FP) PO SCH (09:34)
[2019-11-26] MEDS: FLUoxetine HCL 10 MG CAPSULE PO SCH (09:34)
[2019-11-26] MEDS: LISINOPRIL 5 MG TABLET (FP) PO SCH (09:34)
[2019-11-26] MEDS: risperiDONE 1 MG TABLET PO SCH (09:34)
[2019-11-26] MEDS: FENOFIBRIC ACID 135 MG CAP PO SCH (09:35)
[2019-11-26] MEDS: TOLNAFTATE 1% CREAM 15 GM TUBE TP SCH ×2 (09:36→21:51)
[2019-11-26] MEDS: INSULIN (LEVEMIR) 100 UNITS/ML UNITS SQ SCH (21:50)
[2019-11-26] MEDS: THIAMINE HCL 100 MG TABLET (FP) PO SCH (21:52)
[2019-11-26] MEDS: risperiDONE 2 MG TABLET PO SCH (21:52)
[2019-11-27] MEDS: INSULIN SLIDING SCALE (NOVOLOG) 1 VIAL SQ SCH ×3 (07:34→16:39)
[2019-11-27] MEDS ORDERED: INSULIN (NOVOLOG) ASPART 100 UNITS/ML 10ML VIAL ONE ×2 (07:34→11:53)
[2019-11-27] MEDS ORDERED: PT OWN MED DRAWER 7, Y5N ONE ×3 (08:08→21:52)
[2019-11-27] MEDS: NICOTINE 21 MG/24 HOURS TOPICAL PATCH TD SCH (09:39)
[2019-11-27] MEDS: PRENATAL VITAMINS W/ FOLIC ACID TABLET (FP) PO SCH (09:40)
[2019-11-27] MEDS: risperiDONE 1 MG TABLET PO SCH (09:40)
[2019-11-27] MEDS: FLUoxetine HCL 10 MG CAPSULE PO SCH (09:40)
[2019-11-27] MEDS: FENOFIBRIC ACID 135 MG CAP PO SCH (09:40)
[2019-11-27] MEDS: LISINOPRIL 5 MG TABLET (FP) PO SCH (09:41)
[2019-11-27] MEDS: TOLNAFTATE 1% CREAM 15 GM TUBE TP SCH ×2 (09:41→21:55)
[2019-11-27] MEDS: BACITRACIN 15 GM TUBE TOPICAL OINTMENT TP SCH ×2 (09:42→21:55)
[2019-11-27] MEDS: guaiFENesin 600 MG TABLET.ER (FP) PO SCH ×2 (09:42→21:51)
[2019-11-27] MEDS: IBUPROFEN 400 MG TABLET (FP) PO PRN ×2 (11:54→19:23)
[2019-11-27] MEDS: risperiDONE 2 MG TABLET PO SCH (21:51)
[2019-11-27] MEDS: THIAMINE HCL 100 MG TABLET (FP) PO SCH (21:51)
[2019-11-27] MEDS: MELATONIN 5 MG TABLETS PO PRN (21:52)
[2019-11-27] MEDS: INSULIN (LEVEMIR) 100 UNITS/ML UNITS SQ SCH (21:54)
[2019-11-28] MEDS: INSULIN SLIDING SCALE (NOVOLOG) 1 VIAL SQ SCH ×3 (06:29→17:02)
[2019-11-28] MEDS ORDERED: PT OWN MED DRAWER 7, Y5N ONE ×2 (08:31→21:24)
[2019-11-28] MEDS: IBUPROFEN 400 MG TABLET (FP) PO PRN (08:58)
[2019-11-28] MEDS: hydrOXYzine PAMOATE 25 MG CAPSULE (FP) PO PRN (08:59)
[2019-11-28] MEDS: FENOFIBRIC ACID 135 MG CAP PO SCH (09:38)
[2019-11-28] MEDS: LISINOPRIL 5 MG TABLET (FP) PO SCH (09:38)
[2019-11-28] MEDS: TOLNAFTATE 1% CREAM 15 GM TUBE TP SCH ×2 (09:39→21:58)
[2019-11-28] MEDS: PRENATAL VITAMINS W/ FOLIC ACID TABLET (FP) PO SCH (09:39)
[2019-11-28] MEDS: risperiDONE 1 MG TABLET PO SCH (09:39)
[2019-11-28] MEDS: guaiFENesin 600 MG TABLET.ER (FP) PO SCH ×2 (09:39→21:53)
[2019-11-28] MEDS: NICOTINE 21 MG/24 HOURS TOPICAL PATCH TD SCH (09:39)
[2019-11-28] MEDS: BACITRACIN 15 GM TUBE TOPICAL OINTMENT TP SCH ×2 (09:40→21:55)
[2019-11-28] MEDS: LIDOCAINE 5% TOPICAL PATCH TP SCH (09:41)
[2019-11-28] MEDS: FLUoxetine HCL 10 MG CAPSULE PO SCH (09:42)
[2019-11-28] MEDS ORDERED: INSULIN (NOVOLOG) ASPART 100 UNITS/ML 10ML VIAL ONE ×2 (16:44→22:58)
[2019-11-28] MEDS: THIAMINE HCL 100 MG TABLET (FP) PO SCH (21:52)
[2019-11-28] MEDS: risperiDONE 2 MG TABLET PO SCH (21:53)
[2019-11-28] MEDS: INSULIN (LEVEMIR) 100 UNITS/ML UNITS SQ SCH (21:54)
[2019-11-28] MEDS: LIDOCAINE PATCH REMOVAL MC SCH (21:54)
[2019-11-28] MEDS: ACETAMINOPHEN 325 MG TABLET (FP) PO PRN (21:57)
[2019-11-28] MEDS ORDERED: INSULIN (LEVEMIR) 100 UNITS/ML UNITS SQ ONE (22:58)
[2019-11-29] MEDS: INSULIN SLIDING SCALE (NOVOLOG) 1 VIAL SQ SCH ×3 (07:44→16:34)
[2019-11-29] MEDS ORDERED: INSULIN (NOVOLOG) ASPART 100 UNITS/ML 10ML VIAL ONE ×4 (08:51→23:31)
[2019-11-29] MEDS: risperiDONE 1 MG TABLET PO SCH (09:42)
[2019-11-29] MEDS: PRENATAL VITAMINS W/ FOLIC ACID TABLET (FP) PO SCH (09:42)
[2019-11-29] MEDS: BACITRACIN 15 GM TUBE TOPICAL OINTMENT TP SCH ×2 (09:42→21:08)
[2019-11-29] MEDS: LIDOCAINE 5% TOPICAL PATCH TP SCH (09:42)
[2019-11-29] MEDS: FLUoxetine HCL 10 MG CAPSULE PO SCH (09:43)
[2019-11-29] MEDS: FENOFIBRIC ACID 135 MG CAP PO SCH (09:43)
[2019-11-29] MEDS: NICOTINE 21 MG/24 HOURS TOPICAL PATCH TD SCH (09:43)
[2019-11-29] MEDS: TOLNAFTATE 1% CREAM 15 GM TUBE TP SCH ×2 (09:43→21:09)
[2019-11-29] MEDS: guaiFENesin 600 MG TABLET.ER (FP) PO SCH ×2 (10:21→21:08)
[2019-11-29] MEDS ORDERED: PT OWN MED DRAWER 7, Y5N ONE (10:24)
[2019-11-29] MEDS: LISINOPRIL 5 MG TABLET (FP) PO SCH (10:27)
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
[2019-11-29] MEDS ORDERED: BENZTROPINE MESYLATE 1 MG TABLET PO SCH (12:45)
[2019-11-29] MEDS: INSULIN (LEVEMIR) 100 UNITS/ML UNITS SQ SCH (21:05)
[2019-11-29] MEDS: risperiDONE 2 MG TABLET PO SCH (21:06)
[2019-11-29] MEDS: MELATONIN 5 MG TABLETS PO PRN (21:06)
[2019-11-29] MEDS: THIAMINE HCL 100 MG TABLET (FP) PO SCH (21:06)
[2019-11-29] MEDS: LIDOCAINE PATCH REMOVAL MC SCH (21:07)
[2019-11-29] MEDS ORDERED: INSULIN (LEVEMIR) 100 UNITS/ML UNITS SQ ONE (23:31)
[2019-11-30] MEDS: INSULIN SLIDING SCALE (NOVOLOG) 1 VIAL SQ SCH ×3 (07:30→16:59)
[2019-11-30] MEDS ORDERED: INSULIN (NOVOLOG) ASPART 100 UNITS/ML 10ML VIAL ONE ×4 (07:31→22:18)
[2019-11-30] MEDS ORDERED: PT OWN MED DRAWER 7, Y5N ONE (09:03)
[2019-11-30] MEDS: FENOFIBRIC ACID 135 MG CAP PO SCH (09:39)
[2019-11-30] MEDS: LIDOCAINE 5% TOPICAL PATCH TP SCH (09:39)
[2019-11-30] MEDS: NICOTINE 21 MG/24 HOURS TOPICAL PATCH TD SCH (09:39)
[2019-11-30] MEDS: FLUoxetine HCL 10 MG CAPSULE PO SCH (09:39)
[2019-11-30] MEDS: BACITRACIN 15 GM TUBE TOPICAL OINTMENT TP SCH ×2 (09:40→21:15)
[2019-11-30] MEDS: PRENATAL VITAMINS W/ FOLIC ACID TABLET (FP) PO SCH (09:40)
[2019-11-30] MEDS: TOLNAFTATE 1% CREAM 15 GM TUBE TP SCH ×2 (09:40→21:12)
[2019-11-30] MEDS: LISINOPRIL 5 MG TABLET (FP) PO SCH (09:40)
[2019-11-30] MEDS: guaiFENesin 600 MG TABLET.ER (FP) PO SCH ×2 (09:40→21:14)
[2019-11-30] MEDS: risperiDONE 1 MG TABLET PO SCH (09:40)
[2019-11-30] MEDS: hydrOXYzine PAMOATE 25 MG CAPSULE (FP) PO PRN ×2 (09:42→21:14)
[2019-11-30] MEDS: MELATONIN 5 MG TABLETS PO PRN (21:12)
[2019-11-30] MEDS: INSULIN (LEVEMIR) 100 UNITS/ML UNITS SQ SCH (21:12)
[2019-11-30] MEDS: risperiDONE 2 MG TABLET PO SCH (21:12)
[2019-11-30] MEDS: LIDOCAINE PATCH REMOVAL MC SCH (21:12)
[2019-11-30] MEDS: THIAMINE HCL 100 MG TABLET (FP) PO SCH (21:12)
[2019-11-30] MEDS ORDERED: INSULIN (LEVEMIR) 100 UNITS/ML UNITS SQ ONE (22:18)
[2019-12-01] MEDS: INSULIN SLIDING SCALE (NOVOLOG) 1 VIAL SQ SCH ×3 (07:36→17:01)
[2019-12-01] MEDS ORDERED: INSULIN (NOVOLOG) ASPART 100 UNITS/ML 10ML VIAL ONE ×3 (07:38→17:01)
[2019-12-01] MEDS ORDERED: PT OWN MED DRAWER 7, Y5N ONE ×4 (08:36→21:09)
[2019-12-01] MEDS: NICOTINE 21 MG/24 HOURS TOPICAL PATCH TD SCH (09:37)
[2019-12-01] MEDS: FENOFIBRIC ACID 135 MG CAP PO SCH (09:37)
[2019-12-01] MEDS: FLUoxetine HCL 10 MG CAPSULE PO SCH (09:37)
[2019-12-01] MEDS: TOLNAFTATE 1% CREAM 15 GM TUBE TP SCH ×2 (09:37→21:09)
[2019-12-01] MEDS: guaiFENesin 600 MG TABLET.ER (FP) PO SCH ×2 (09:37→21:08)
[2019-12-01] MEDS: PRENATAL VITAMINS W/ FOLIC ACID TABLET (FP) PO SCH (09:37)
[2019-12-01] MEDS: risperiDONE 1 MG TABLET PO SCH (09:38)
[2019-12-01] MEDS: LISINOPRIL 5 MG TABLET (FP) PO SCH (09:38)
[2019-12-01] MEDS: BACITRACIN 15 GM TUBE TOPICAL OINTMENT TP SCH ×2 (09:38→21:08)
[2019-12-01] MEDS: LIDOCAINE 5% TOPICAL PATCH TP SCH (09:39)
[2019-12-01] MEDS: hydrOXYzine PAMOATE 25 MG CAPSULE (FP) PO PRN ×2 (09:39→21:11)
[2019-12-01] MEDS: INSULIN (LEVEMIR) 100 UNITS/ML UNITS SQ SCH (21:07)
[2019-12-01] MEDS: risperiDONE 2 MG TABLET PO SCH (21:08)
[2019-12-01] MEDS: THIAMINE HCL 100 MG TABLET (FP) PO SCH (21:08)
[2019-12-01] MEDS: MELATONIN 5 MG TABLETS PO PRN (21:11)
[2019-12-01] MEDS: LIDOCAINE PATCH REMOVAL MC SCH (22:26)
[2019-12-02] MEDS: INSULIN SLIDING SCALE (NOVOLOG) 1 VIAL SQ SCH ×3 (07:33→16:42)
[2019-12-02] MEDS ORDERED: INSULIN (NOVOLOG) ASPART 100 UNITS/ML 10ML VIAL ONE ×3 (07:34→16:41)
[2019-12-02] MEDS ORDERED: PT OWN MED DRAWER 7, Y5N ONE ×3 (08:32→19:34)
[2019-12-02] MEDS: guaiFENesin 600 MG TABLET.ER (FP) PO SCH ×2 (09:45→21:39)
[2019-12-02] MEDS: LIDOCAINE 5% TOPICAL PATCH TP SCH (09:45)
[2019-12-02] MEDS: BACITRACIN 15 GM TUBE TOPICAL OINTMENT TP SCH ×2 (09:45→21:37)
[2019-12-02] MEDS: FLUoxetine HCL 10 MG CAPSULE PO SCH (09:45)
[2019-12-02] MEDS: LISINOPRIL 5 MG TABLET (FP) PO SCH (09:46)
[2019-12-02] MEDS: TOLNAFTATE 1% CREAM 15 GM TUBE TP SCH ×2 (09:46→21:43)
[2019-12-02] MEDS: PRENATAL VITAMINS W/ FOLIC ACID TABLET (FP) PO SCH (09:46)
[2019-12-02] MEDS: risperiDONE 1 MG TABLET PO SCH (09:46)
[2019-12-02] MEDS: FENOFIBRIC ACID 135 MG CAP PO SCH (09:47)
[2019-12-02] MEDS: hydrOXYzine PAMOATE 25 MG CAPSULE (FP) PO PRN (09:48)
[2019-12-02] MEDS: NICOTINE 21 MG/24 HOURS TOPICAL PATCH TD SCH (09:48)
[2019-12-02] MEDS: risperiDONE 2 MG TABLET PO SCH (21:38)
[2019-12-02] MEDS: INSULIN (LEVEMIR) 100 UNITS/ML UNITS SQ SCH (21:38)
[2019-12-02] MEDS: THIAMINE HCL 100 MG TABLET (FP) PO SCH (21:39)
[2019-12-02] MEDS: MELATONIN 5 MG TABLETS PO PRN (21:40)
[2019-12-02] MEDS: LIDOCAINE PATCH REMOVAL MC SCH (21:43)
[2019-12-03] MEDS: INSULIN SLIDING SCALE (NOVOLOG) 1 VIAL SQ SCH ×4 (08:04→22:00)
[2019-12-03] MEDS ORDERED: INSULIN (NOVOLOG) ASPART 100 UNITS/ML 10ML VIAL ONE ×3 (08:07→22:09)
[2019-12-03] MEDS: LISINOPRIL 5 MG TABLET (FP) PO SCH (10:09)
[2019-12-03] MEDS: PRENATAL VITAMINS W/ FOLIC ACID TABLET (FP) PO SCH (10:09)
[2019-12-03] MEDS: risperiDONE 1 MG TABLET PO SCH (10:09)
[2019-12-03] MEDS: FLUoxetine HCL 10 MG CAPSULE PO SCH (10:09)
[2019-12-03] MEDS: FENOFIBRIC ACID 135 MG CAP PO SCH (10:09)
[2019-12-03] MEDS: NICOTINE 21 MG/24 HOURS TOPICAL PATCH TD SCH (10:10)
[2019-12-03] MEDS: LIDOCAINE 5% TOPICAL PATCH TP SCH (10:10)
[2019-12-03] MEDS: guaiFENesin 600 MG TABLET.ER (FP) PO SCH ×2 (10:10→21:57)
[2019-12-03] MEDS: IBUPROFEN 400 MG TABLET (FP) PO PRN (10:11)
[2019-12-03] MEDS: BACITRACIN 15 GM TUBE TOPICAL OINTMENT TP SCH ×2 (10:12→21:57)
[2019-12-03] MEDS: hydrOXYzine PAMOATE 25 MG CAPSULE (FP) PO PRN (10:12)
[2019-12-03] MEDS: TOLNAFTATE 1% CREAM 15 GM TUBE TP SCH ×2 (10:12→22:03)
[2019-12-03] MEDS ORDERED: INSULIN (NOVOLOG) ASPART 100 UNITS/ML 10ML VIAL SQ ONE (12:04)
[2019-12-03] MEDS ORDERED: INSULIN (LEVEMIR) 100 UNITS/ML UNITS SQ ONE ×2 (16:55→22:09)
[2019-12-03] MEDS: risperiDONE 2 MG TABLET PO SCH (21:56)
[2019-12-03] MEDS: LIDOCAINE PATCH REMOVAL MC SCH (21:56)
[2019-12-03] MEDS: MELATONIN 5 MG TABLETS PO PRN (21:56)
[2019-12-03] MEDS: THIAMINE HCL 100 MG TABLET (FP) PO SCH (21:56)
[2019-12-03] MEDS: INSULIN (LEVEMIR) 100 UNITS/ML UNITS SQ SCH (21:56)
[2019-12-04] MEDS ORDERED: INSULIN (NOVOLOG) ASPART 100 UNITS/ML 10ML VIAL ONE ×5 (08:05→22:40)
[2019-12-04] MEDS: INSULIN SLIDING SCALE (NOVOLOG) 1 VIAL SQ SCH ×4 (08:24→22:20)
[2019-12-04] MEDS: LIDOCAINE 5% TOPICAL PATCH TP SCH (09:56)
[2019-12-04] MEDS: risperiDONE 1 MG TABLET PO SCH (09:56)
[2019-12-04] MEDS: PRENATAL VITAMINS W/ FOLIC ACID TABLET (FP) PO SCH (09:56)
[2019-12-04] MEDS: guaiFENesin 600 MG TABLET.ER (FP) PO SCH ×2 (09:57→22:20)
[2019-12-04] MEDS: FLUoxetine HCL 10 MG CAPSULE PO SCH (09:57)
[2019-12-04] MEDS: LISINOPRIL 5 MG TABLET (FP) PO SCH (09:57)
[2019-12-04] MEDS: FENOFIBRIC ACID 135 MG CAP PO SCH (09:58)
[2019-12-04] MEDS: NICOTINE 21 MG/24 HOURS TOPICAL PATCH TD SCH (09:58)
[2019-12-04] MEDS: hydrOXYzine PAMOATE 25 MG CAPSULE (FP) PO PRN ×2 (09:59→16:44)
[2019-12-04] MEDS: IBUPROFEN 400 MG TABLET (FP) PO PRN ×2 (10:00→16:43)
[2019-12-04] MEDS: TOLNAFTATE 1% CREAM 15 GM TUBE TP SCH ×2 (10:01→22:20)
[2019-12-04] MEDS: BACITRACIN 15 GM TUBE TOPICAL OINTMENT TP SCH ×2 (10:01→22:21)
[2019-12-04] MEDS: risperiDONE 2 MG TABLET PO SCH (22:17)
[2019-12-04] MEDS: THIAMINE HCL 100 MG TABLET (FP) PO SCH (22:17)
[2019-12-04] MEDS: LIDOCAINE PATCH REMOVAL MC SCH (22:18)
[2019-12-04] MEDS: MELATONIN 5 MG TABLETS PO PRN (22:18)
[2019-12-04] MEDS: INSULIN (LEVEMIR) 100 UNITS/ML UNITS SQ SCH (22:21)
[2019-12-04] MEDS ORDERED: PT OWN MED DRAWER 7, Y5N ONE (22:39)
[2019-12-05] MEDS: INSULIN SLIDING SCALE (NOVOLOG) 1 VIAL SQ SCH ×4 (07:42→21:58)
[2019-12-05] MEDS ORDERED: INSULIN (NOVOLOG) ASPART 100 UNITS/ML 10ML VIAL ONE ×2 (07:43→17:03)
[2019-12-05] MEDS ORDERED: PT OWN MED DRAWER 7, Y5N ONE ×4 (08:37→21:56)
[2019-12-05] MEDS: TOLNAFTATE 1% CREAM 15 GM TUBE TP SCH ×2 (09:41→22:03)
[2019-12-05] MEDS: NICOTINE 21 MG/24 HOURS TOPICAL PATCH TD SCH (09:41)
[2019-12-05] MEDS: LIDOCAINE 5% TOPICAL PATCH TP SCH (09:42)
[2019-12-05] MEDS: FLUoxetine HCL 10 MG CAPSULE PO SCH (09:42)
[2019-12-05] MEDS: risperiDONE 1 MG TABLET PO SCH (09:42)
[2019-12-05] MEDS: LISINOPRIL 5 MG TABLET (FP) PO SCH (09:42)
[2019-12-05] MEDS: PRENATAL VITAMINS W/ FOLIC ACID TABLET (FP) PO SCH (09:42)
[2019-12-05] MEDS: guaiFENesin 600 MG TABLET.ER (FP) PO SCH ×2 (09:42→22:01)
[2019-12-05] MEDS: FENOFIBRIC ACID 135 MG CAP PO SCH (09:43)
[2019-12-05] MEDS: BACITRACIN 15 GM TUBE TOPICAL OINTMENT TP SCH ×2 (09:44→22:02)
[2019-12-05] MEDS: IBUPROFEN 400 MG TABLET (FP) PO PRN (09:45)
--- NOTE | 2019-12-05 10:12 | PN ---
S Progress Note Note: pt c/o blister of right great toe. Saw pt who reported she "peeled off skin " from her toe because does'nt like skin. Vital Signs - 24 hr 12/05/19 12/05/19 12/05/19 00:30 03:30 07:02 Temperature 97.8 F Pulse Rate 84 Respiratory 18 18 18 Rate Blood Pressure 127/76 12/05/19 09:10 Temperature Pulse Rate 81 Respiratory Rate Blood Pressure 98/61 Alert o x 3 nad oob ambulating with steady gait Right feet:Great toe with exposed skin,clean and pink. No drainage. A/P callused foot Apply Bacitracin ointment as directed. D/w pt to follow up with Operator/Assistant Foreman on discharge after rehab treatment. Pt agreeable to poc.
[2019-12-05] MEDS: risperiDONE 2 MG TABLET PO SCH (21:58)
[2019-12-05] MEDS: INSULIN (LEVEMIR) 100 UNITS/ML UNITS SQ SCH (21:58)
[2019-12-05] MEDS: LIDOCAINE PATCH REMOVAL MC SCH (22:02)
[2019-12-05] MEDS: MELATONIN 5 MG TABLETS PO PRN (22:02)
[2019-12-05] MEDS: THIAMINE HCL 100 MG TABLET (FP) PO SCH (22:03)
[2019-12-06] MEDS: INSULIN SLIDING SCALE (NOVOLOG) 1 VIAL SQ SCH ×4 (07:45→23:17)
[2019-12-06] MEDS ORDERED: INSULIN (NOVOLOG) ASPART 100 UNITS/ML 10ML VIAL ONE ×4 (07:52→23:15)
[2019-12-06] MEDS: BACITRACIN 15 GM TUBE TOPICAL OINTMENT TP SCH ×2 (09:34→23:19)
[2019-12-06] MEDS: guaiFENesin 600 MG TABLET.ER (FP) PO SCH ×2 (09:36→23:20)
[2019-12-06] MEDS: LIDOCAINE 5% TOPICAL PATCH TP SCH (09:36)
[2019-12-06] MEDS: PRENATAL VITAMINS W/ FOLIC ACID TABLET (FP) PO SCH (09:36)
[2019-12-06] MEDS: FLUoxetine HCL 10 MG CAPSULE PO SCH (09:37)
[2019-12-06] MEDS: LISINOPRIL 5 MG TABLET (FP) PO SCH (09:37)
[2019-12-06] MEDS: risperiDONE 1 MG TABLET PO SCH (09:37)
[2019-12-06] MEDS: NICOTINE 21 MG/24 HOURS TOPICAL PATCH TD SCH (09:38)
[2019-12-06] MEDS: TOLNAFTATE 1% CREAM 15 GM TUBE TP SCH ×2 (09:39→23:20)
[2019-12-06] MEDS: FENOFIBRIC ACID 135 MG CAP PO SCH (09:39)
[2019-12-06] MEDS: IBUPROFEN 400 MG TABLET (FP) PO PRN ×2 (09:40→23:22)
[2019-12-06] MEDS: hydrOXYzine PAMOATE 25 MG CAPSULE (FP) PO PRN ×2 (09:41→23:23)
[2019-12-06] MEDS ORDERED: PT OWN MED DRAWER 7, Y5N ONE ×2 (10:24→23:20)
[2019-12-06] MEDS: LIDOCAINE PATCH REMOVAL MC SCH (23:09)
[2019-12-06] MEDS: THIAMINE HCL 100 MG TABLET (FP) PO SCH (23:19)
[2019-12-06] MEDS: risperiDONE 2 MG TABLET PO SCH (23:19)
[2019-12-06] MEDS: MELATONIN 5 MG TABLETS PO PRN (23:27)
[2019-12-07] MEDS: INSULIN (LEVEMIR) 100 UNITS/ML UNITS SQ SCH ×2 (00:36→21:41)
[2019-12-07] MEDS: INSULIN SLIDING SCALE (NOVOLOG) 1 VIAL SQ SCH ×4 (07:41→21:45)
[2019-12-07] MEDS ORDERED: INSULIN (NOVOLOG) ASPART 100 UNITS/ML 10ML VIAL ONE ×4 (07:44→21:57)
[2019-12-07] MEDS ORDERED: PT OWN MED DRAWER 7, Y5N ONE ×3 (08:54→21:40)
[2019-12-07] MEDS: risperiDONE 1 MG TABLET PO SCH (10:02)
[2019-12-07] MEDS: PRENATAL VITAMINS W/ FOLIC ACID TABLET (FP) PO SCH (10:02)
[2019-12-07] MEDS: FENOFIBRIC ACID 135 MG CAP PO SCH (10:03)
[2019-12-07] MEDS: LIDOCAINE 5% TOPICAL PATCH TP SCH (10:03)
[2019-12-07] MEDS: NICOTINE 21 MG/24 HOURS TOPICAL PATCH TD SCH (10:03)
[2019-12-07] MEDS: FLUoxetine HCL 10 MG CAPSULE PO SCH (10:03)
[2019-12-07] MEDS: LISINOPRIL 5 MG TABLET (FP) PO SCH (10:03)
[2019-12-07] MEDS: IBUPROFEN 400 MG TABLET (FP) PO PRN (10:05)
[2019-12-07] MEDS: guaiFENesin 600 MG TABLET.ER (FP) PO SCH ×2 (10:05→21:40)
[2019-12-07] MEDS: hydrOXYzine PAMOATE 25 MG CAPSULE (FP) PO PRN ×2 (10:05→21:41)
[2019-12-07] MEDS: BACITRACIN 15 GM TUBE TOPICAL OINTMENT TP SCH ×2 (10:07→21:42)
[2019-12-07] MEDS: TOLNAFTATE 1% CREAM 15 GM TUBE TP SCH ×2 (10:07→21:43)
[2019-12-07] MEDS: THIAMINE HCL 100 MG TABLET (FP) PO SCH (21:40)
[2019-12-07] MEDS: LIDOCAINE PATCH REMOVAL MC SCH (21:41)
[2019-12-07] MEDS: MELATONIN 5 MG TABLETS PO PRN (21:41)
[2019-12-07] MEDS: risperiDONE 2 MG TABLET PO SCH (21:41)
[2019-12-08] MEDS: INSULIN SLIDING SCALE (NOVOLOG) 1 VIAL SQ SCH ×4 (07:34→21:42)
[2019-12-08] MEDS ORDERED: INSULIN (NOVOLOG) ASPART 100 UNITS/ML 10ML VIAL ONE ×4 (07:36→22:03)
[2019-12-08] MEDS: LIDOCAINE 5% TOPICAL PATCH TP SCH (09:40)
[2019-12-08] MEDS: BACITRACIN 15 GM TUBE TOPICAL OINTMENT TP SCH ×2 (09:40→21:42)
[2019-12-08] MEDS: guaiFENesin 600 MG TABLET.ER (FP) PO SCH ×2 (09:41→21:38)
[2019-12-08] MEDS: PRENATAL VITAMINS W/ FOLIC ACID TABLET (FP) PO SCH (09:41)
[2019-12-08] MEDS: risperiDONE 1 MG TABLET PO SCH (09:41)
[2019-12-08] MEDS: LISINOPRIL 5 MG TABLET (FP) PO SCH (09:41)
[2019-12-08] MEDS: FLUoxetine HCL 10 MG CAPSULE PO SCH (09:41)
[2019-12-08] MEDS: NICOTINE 21 MG/24 HOURS TOPICAL PATCH TD SCH (09:42)
[2019-12-08] MEDS: FENOFIBRIC ACID 135 MG CAP PO SCH (09:42)
[2019-12-08] MEDS: IBUPROFEN 400 MG TABLET (FP) PO PRN (09:43)
[2019-12-08] MEDS: hydrOXYzine PAMOATE 25 MG CAPSULE (FP) PO PRN ×2 (09:43→21:38)
[2019-12-08] MEDS: TOLNAFTATE 1% CREAM 15 GM TUBE TP SCH ×2 (10:09→21:45)
--- NOTE | 2019-12-08 13:22 | PN ---
[facility] Progress Note Note: patient with elevated BGM. Non-complaint with diet. Started metformin.
[2019-12-08] MEDS: metFORMIN HCL 500 MG TABLET (FP) PO SCH (17:16)
[2019-12-08] MEDS: THIAMINE HCL 100 MG TABLET (FP) PO SCH (21:37)
[2019-12-08] MEDS: MELATONIN 5 MG TABLETS PO PRN (21:37)
[2019-12-08] MEDS: risperiDONE 2 MG TABLET PO SCH (21:38)
[2019-12-08] MEDS: INSULIN (LEVEMIR) 100 UNITS/ML UNITS SQ SCH (21:38)
[2019-12-08] MEDS: LIDOCAINE PATCH REMOVAL MC SCH (21:42)
[2019-12-08] MEDS ORDERED: INSULIN (LEVEMIR) 100 UNITS/ML UNITS SQ ONE (22:03)
[2019-12-08] MEDS ORDERED: PT OWN MED DRAWER 7, Y5N ONE (22:17)
[2019-12-09] MEDS ORDERED: INSULIN (NOVOLOG) ASPART 100 UNITS/ML 10ML VIAL ONE ×4 (06:45→22:17)
[2019-12-09] MEDS: INSULIN SLIDING SCALE (NOVOLOG) 1 VIAL SQ SCH ×4 (07:03→21:33)
[2019-12-09] MEDS: metFORMIN HCL 500 MG TABLET (FP) PO SCH ×2 (07:04→17:11)
[2019-12-09] MEDS ORDERED: PT OWN MED DRAWER 7, Y5N ONE ×2 (08:23→22:18)
[2019-12-09] MEDS: guaiFENesin 600 MG TABLET.ER (FP) PO SCH ×2 (09:41→21:31)
[2019-12-09] MEDS: NICOTINE 21 MG/24 HOURS TOPICAL PATCH TD SCH (09:41)
[2019-12-09] MEDS: risperiDONE 1 MG TABLET PO SCH (09:42)
[2019-12-09] MEDS: LISINOPRIL 5 MG TABLET (FP) PO SCH (09:42)
[2019-12-09] MEDS: PRENATAL VITAMINS W/ FOLIC ACID TABLET (FP) PO SCH (09:42)
[2019-12-09] MEDS: FLUoxetine HCL 10 MG CAPSULE PO SCH (09:42)
[2019-12-09] MEDS: LIDOCAINE 5% TOPICAL PATCH TP SCH (09:42)
[2019-12-09] MEDS: FENOFIBRIC ACID 135 MG CAP PO SCH (09:42)
[2019-12-09] MEDS: IBUPROFEN 400 MG TABLET (FP) PO PRN (09:44)
[2019-12-09] MEDS: hydrOXYzine PAMOATE 25 MG CAPSULE (FP) PO PRN ×2 (09:44→21:31)
[2019-12-09] MEDS: TOLNAFTATE 1% CREAM 15 GM TUBE TP SCH ×2 (09:46→21:35)
[2019-12-09] MEDS: BACITRACIN 15 GM TUBE TOPICAL OINTMENT TP SCH ×2 (09:46→21:35)
[2019-12-09] MEDS: INSULIN (LEVEMIR) 100 UNITS/ML UNITS SQ SCH (21:32)
[2019-12-09] MEDS: THIAMINE HCL 100 MG TABLET (FP) PO SCH (21:32)
[2019-12-09] MEDS: LIDOCAINE PATCH REMOVAL MC SCH (21:33)
[2019-12-09] MEDS: risperiDONE 2 MG TABLET PO SCH (21:35)
[2019-12-09] MEDS ORDERED: INSULIN (LEVEMIR) 100 UNITS/ML UNITS SQ ONE (22:17)
[2019-12-10] MEDS: metFORMIN HCL 500 MG TABLET (FP) PO SCH ×2 (06:29→16:59)
[2019-12-10] MEDS: INSULIN SLIDING SCALE (NOVOLOG) 1 VIAL SQ SCH ×4 (07:37→21:47)
[2019-12-10] MEDS ORDERED: INSULIN (NOVOLOG) ASPART 100 UNITS/ML 10ML VIAL ONE ×3 (07:41→17:01)
[2019-12-10] MEDS ORDERED: PT OWN MED DRAWER 7, Y5N ONE ×3 (08:14→22:03)
[2019-12-10] MEDS: BACITRACIN 15 GM TUBE TOPICAL OINTMENT TP SCH ×2 (09:45→21:43)
[2019-12-10] MEDS: LIDOCAINE 5% TOPICAL PATCH TP SCH (09:45)
[2019-12-10] MEDS: guaiFENesin 600 MG TABLET.ER (FP) PO SCH ×2 (09:46→21:48)
[2019-12-10] MEDS: PRENATAL VITAMINS W/ FOLIC ACID TABLET (FP) PO SCH (09:46)
[2019-12-10] MEDS: FLUoxetine HCL 10 MG CAPSULE PO SCH (09:46)
[2019-12-10] MEDS: NICOTINE 21 MG/24 HOURS TOPICAL PATCH TD SCH (09:46)
[2019-12-10] MEDS: risperiDONE 1 MG TABLET PO SCH (09:47)
[2019-12-10] MEDS: LISINOPRIL 5 MG TABLET (FP) PO SCH (09:48)
[2019-12-10] MEDS: FENOFIBRIC ACID 135 MG CAP PO SCH (09:48)
[2019-12-10] MEDS: TOLNAFTATE 1% CREAM 15 GM TUBE TP SCH ×2 (09:49→21:48)
[2019-12-10] MEDS: IBUPROFEN 400 MG TABLET (FP) PO PRN ×2 (09:50→21:50)
[2019-12-10] MEDS: hydrOXYzine PAMOATE 25 MG CAPSULE (FP) PO PRN ×2 (09:50→21:49)
[2019-12-10] MEDS: INSULIN (LEVEMIR) 100 UNITS/ML UNITS SQ SCH (21:45)
[2019-12-10] MEDS: LIDOCAINE PATCH REMOVAL MC SCH (21:48)
[2019-12-10] MEDS: THIAMINE HCL 100 MG TABLET (FP) PO SCH (21:48)
[2019-12-10] MEDS: risperiDONE 2 MG TABLET PO SCH (21:48)
[2019-12-10] MEDS: MELATONIN 5 MG TABLETS PO PRN (21:48)
[2019-12-11] MEDS: metFORMIN HCL 500 MG TABLET (FP) PO SCH ×2 (06:38→17:40)
[2019-12-11] MEDS: INSULIN SLIDING SCALE (NOVOLOG) 1 VIAL SQ SCH ×4 (06:38→22:12)
[2019-12-11] MEDS: FLUoxetine HCL 10 MG CAPSULE PO SCH (09:19)
[2019-12-11] MEDS: BACITRACIN 15 GM TUBE TOPICAL OINTMENT TP SCH ×2 (09:19→21:08)
[2019-12-11] MEDS: guaiFENesin 600 MG TABLET.ER (FP) PO SCH ×2 (09:19→21:09)
[2019-12-11] MEDS: LIDOCAINE 5% TOPICAL PATCH TP SCH (09:19)
[2019-12-11] MEDS: NICOTINE 21 MG/24 HOURS TOPICAL PATCH TD SCH (09:20)
[2019-12-11] MEDS: PRENATAL VITAMINS W/ FOLIC ACID TABLET (FP) PO SCH (09:20)
[2019-12-11] MEDS: risperiDONE 1 MG TABLET PO SCH (09:20)
[2019-12-11] MEDS: LISINOPRIL 5 MG TABLET (FP) PO SCH (09:20)
[2019-12-11] MEDS: FENOFIBRIC ACID 135 MG CAP PO SCH (09:20)
[2019-12-11] MEDS: IBUPROFEN 400 MG TABLET (FP) PO PRN (09:21)
[2019-12-11] MEDS: hydrOXYzine PAMOATE 25 MG CAPSULE (FP) PO PRN ×2 (09:21→21:10)
[2019-12-11] MEDS: TOLNAFTATE 1% CREAM 15 GM TUBE TP SCH ×2 (09:22→21:09)
[2019-12-11] MEDS ORDERED: INSULIN (NOVOLOG) ASPART 100 UNITS/ML 10ML VIAL ONE ×2 (11:51→17:38)
[2019-12-11] MEDS: INSULIN (LEVEMIR) 100 UNITS/ML UNITS SQ SCH (21:07)
[2019-12-11] MEDS: LIDOCAINE PATCH REMOVAL MC SCH (21:08)
[2019-12-11] MEDS: risperiDONE 2 MG TABLET PO SCH (21:08)
[2019-12-11] MEDS: MELATONIN 5 MG TABLETS PO PRN (21:08)
[2019-12-11] MEDS: THIAMINE HCL 100 MG TABLET (FP) PO SCH (21:08)
[2019-12-12] MEDS: metFORMIN HCL 500 MG TABLET (FP) PO SCH ×2 (06:29→16:49)
[2019-12-12] MEDS: INSULIN SLIDING SCALE (NOVOLOG) 1 VIAL SQ SCH ×4 (07:42→21:21)
[2019-12-12] MEDS ORDERED: INSULIN (NOVOLOG) ASPART 100 UNITS/ML 10ML VIAL ONE ×3 (07:43→16:43)
[2019-12-12] MEDS: LIDOCAINE 5% TOPICAL PATCH TP SCH (09:34)
[2019-12-12] MEDS: risperiDONE 1 MG TABLET PO SCH (09:35)
[2019-12-12] MEDS: NICOTINE 21 MG/24 HOURS TOPICAL PATCH TD SCH (09:35)
[2019-12-12] MEDS: LISINOPRIL 5 MG TABLET (FP) PO SCH (09:35)
[2019-12-12] MEDS: FENOFIBRIC ACID 135 MG CAP PO SCH (09:36)
[2019-12-12] MEDS: PRENATAL VITAMINS W/ FOLIC ACID TABLET (FP) PO SCH (09:36)
[2019-12-12] MEDS: guaiFENesin 600 MG TABLET.ER (FP) PO SCH ×2 (09:36→21:17)
[2019-12-12] MEDS: FLUoxetine HCL 10 MG CAPSULE PO SCH (09:36)
[2019-12-12] MEDS: hydrOXYzine PAMOATE 25 MG CAPSULE (FP) PO PRN ×2 (09:37→21:17)
[2019-12-12] MEDS: BACITRACIN 15 GM TUBE TOPICAL OINTMENT TP SCH ×2 (09:38→21:23)
[2019-12-12] MEDS: TOLNAFTATE 1% CREAM 15 GM TUBE TP SCH ×2 (09:38→21:22)
[2019-12-12] MEDS: MELATONIN 5 MG TABLETS PO PRN (21:17)
[2019-12-12] MEDS: THIAMINE HCL 100 MG TABLET (FP) PO SCH (21:17)
[2019-12-12] MEDS: risperiDONE 2 MG TABLET PO SCH (21:17)
[2019-12-12] MEDS: INSULIN (LEVEMIR) 100 UNITS/ML UNITS SQ SCH (21:19)
[2019-12-12] MEDS: LIDOCAINE PATCH REMOVAL MC SCH (21:23)
[2019-12-13] MEDS: metFORMIN HCL 500 MG TABLET (FP) PO SCH (06:39)
[2019-12-13] MEDS: INSULIN SLIDING SCALE (NOVOLOG) 1 VIAL SQ SCH ×4 (06:40→21:46)
[2019-12-13] MEDS ORDERED: INSULIN (NOVOLOG) ASPART 100 UNITS/ML 10ML VIAL ONE ×4 (06:40→22:40)
[2019-12-13] MEDS: NICOTINE 21 MG/24 HOURS TOPICAL PATCH TD SCH (09:43)
[2019-12-13] MEDS: TOLNAFTATE 1% CREAM 15 GM TUBE TP SCH ×2 (09:43→21:47)
[2019-12-13] MEDS: LIDOCAINE 5% TOPICAL PATCH TP SCH (09:44)
[2019-12-13] MEDS: FLUoxetine HCL 10 MG CAPSULE PO SCH (09:44)
[2019-12-13] MEDS: guaiFENesin 600 MG TABLET.ER (FP) PO SCH ×2 (09:45→21:43)
[2019-12-13] MEDS: LISINOPRIL 5 MG TABLET (FP) PO SCH (09:45)
[2019-12-13] MEDS: PRENATAL VITAMINS W/ FOLIC ACID TABLET (FP) PO SCH (09:45)
[2019-12-13] MEDS: risperiDONE 1 MG TABLET PO SCH (09:45)
[2019-12-13] MEDS: FENOFIBRIC ACID 135 MG CAP PO SCH (09:45)
[2019-12-13] MEDS: BACITRACIN 15 GM TUBE TOPICAL OINTMENT TP SCH ×2 (09:46→21:47)
[2019-12-13] MEDS: IBUPROFEN 400 MG TABLET (FP) PO PRN (09:46)
[2019-12-13] MEDS: hydrOXYzine PAMOATE 25 MG CAPSULE (FP) PO PRN ×2 (09:46→21:44)
[2019-12-13] MEDS: MELATONIN 5 MG TABLETS PO PRN (21:43)
[2019-12-13] MEDS: THIAMINE HCL 100 MG TABLET (FP) PO SCH (21:43)
[2019-12-13] MEDS: risperiDONE 2 MG TABLET PO SCH (21:43)
[2019-12-13] MEDS: INSULIN (LEVEMIR) 100 UNITS/ML UNITS SQ SCH (21:45)
[2019-12-13] MEDS: LIDOCAINE PATCH REMOVAL MC SCH (21:47)
[2019-12-13] MEDS ORDERED: INSULIN (LEVEMIR) 100 UNITS/ML UNITS SQ ONE (22:40)
[2019-12-14] MEDS ORDERED: PT OWN MED DRAWER 7, Y5N ONE ×3 (06:19→14:52)
[2019-12-14] MEDS: INSULIN SLIDING SCALE (NOVOLOG) 1 VIAL SQ SCH ×4 (07:41→21:45)
[2019-12-14] MEDS ORDERED: INSULIN (NOVOLOG) ASPART 100 UNITS/ML 10ML VIAL ONE ×3 (07:42→22:02)
[2019-12-14] MEDS: IBUPROFEN 400 MG TABLET (FP) PO PRN (09:40)
[2019-12-14] MEDS: hydrOXYzine PAMOATE 25 MG CAPSULE (FP) PO PRN ×2 (09:40→21:43)
[2019-12-14] MEDS: FLUoxetine HCL 10 MG CAPSULE PO SCH (09:40)
[2019-12-14] MEDS: guaiFENesin 600 MG TABLET.ER (FP) PO SCH ×2 (09:41→21:44)
[2019-12-14] MEDS: LISINOPRIL 5 MG TABLET (FP) PO SCH (09:41)
[2019-12-14] MEDS: risperiDONE 1 MG TABLET PO SCH (09:41)
[2019-12-14] MEDS: FENOFIBRIC ACID 135 MG CAP PO SCH (09:41)
[2019-12-14] MEDS: NICOTINE 21 MG/24 HOURS TOPICAL PATCH TD SCH (09:41)
[2019-12-14] MEDS: PRENATAL VITAMINS W/ FOLIC ACID TABLET (FP) PO SCH (09:41)
[2019-12-14] MEDS: LIDOCAINE 5% TOPICAL PATCH TP SCH (09:42)
[2019-12-14] MEDS: BACITRACIN 15 GM TUBE TOPICAL OINTMENT TP SCH ×2 (09:42→21:47)
[2019-12-14] MEDS: TOLNAFTATE 1% CREAM 15 GM TUBE TP SCH ×2 (09:43→21:47)
[2019-12-14] MEDS: THIAMINE HCL 100 MG TABLET (FP) PO SCH (21:42)
[2019-12-14] MEDS: LIDOCAINE PATCH REMOVAL MC SCH (21:43)
[2019-12-14] MEDS: INSULIN (LEVEMIR) 100 UNITS/ML UNITS SQ SCH (21:43)
[2019-12-14] MEDS: MELATONIN 5 MG TABLETS PO PRN (21:43)
[2019-12-14] MEDS: risperiDONE 2 MG TABLET PO SCH (21:43)
[2019-12-14] MEDS ORDERED: INSULIN (LEVEMIR) 100 UNITS/ML UNITS SQ ONE (22:02)
[2019-12-15] MEDS: INSULIN SLIDING SCALE (NOVOLOG) 1 VIAL SQ SCH ×4 (07:25→21:43)
[2019-12-15] MEDS ORDERED: INSULIN (NOVOLOG) ASPART 100 UNITS/ML 10ML VIAL ONE ×3 (07:27→22:08)
[2019-12-15] MEDS ORDERED: PT OWN MED DRAWER 7, Y5N ONE ×3 (08:28→22:08)
[2019-12-15] MEDS: BACITRACIN 15 GM TUBE TOPICAL OINTMENT TP SCH ×2 (10:05→21:45)
[2019-12-15] MEDS: LIDOCAINE 5% TOPICAL PATCH TP SCH (10:06)
[2019-12-15] MEDS: FLUoxetine HCL 10 MG CAPSULE PO SCH (10:06)
[2019-12-15] MEDS: PRENATAL VITAMINS W/ FOLIC ACID TABLET (FP) PO SCH (10:07)
[2019-12-15] MEDS: risperiDONE 1 MG TABLET PO SCH (10:07)
[2019-12-15] MEDS: LISINOPRIL 5 MG TABLET (FP) PO SCH (10:07)
[2019-12-15] MEDS: NICOTINE 21 MG/24 HOURS TOPICAL PATCH TD SCH (10:07)
[2019-12-15] MEDS: guaiFENesin 600 MG TABLET.ER (FP) PO SCH ×2 (10:07→21:41)
[2019-12-15] MEDS: FENOFIBRIC ACID 135 MG CAP PO SCH (10:08)
[2019-12-15] MEDS: hydrOXYzine PAMOATE 25 MG CAPSULE (FP) PO PRN ×2 (10:08→21:40)
[2019-12-15] MEDS: IBUPROFEN 400 MG TABLET (FP) PO PRN (10:08)
[2019-12-15] MEDS: TOLNAFTATE 1% CREAM 15 GM TUBE TP SCH ×2 (10:11→21:45)
--- NOTE | 2019-12-15 13:49 | PN ---
[facility] Progress Note Note: Patient is scheduled for discharge tomorrow. Scripts for 30 days supply of medications(Prozac 30 mg/day, Risperdal 1 mg/day & 2 mg/hs) will be electronically transmitted to [facility] at [address] [place] [address]
--- NOTE | 2019-12-15 14:25 | DS ---
[facility] Rehab Discharge Summary - [facility] Rehab Discharge Summary Admission Date: 11/19/19 Discharge Date: 12/16/19 - History Present History: Alcohol dependence Additional Comments: Pt is a 64 y/o female with a hx of Alcohol use disorder admitted to rehab and scheduled to discharge on 12/16/19. Pertinent Past History: Asthma HTN DM GERD Hep C Schizoaffective Disorder Bipolar Disorder - Discharge Physical Exam Vital Signs: Vital Signs Temperature 97.7 F 12/15/19 07:04 Pulse Rate 85 12/15/19 09:38 Respiratory Rate 16 12/15/19 07:04 Blood Pressure 100/66 12/15/19 09:38 O2 Sat by Pulse Oximetry (%) Pertinent Admission Physical Exam Findings: Laboratory Tests 11/19/19 11/19/19 11/20/19 16:48 21:40 06:18 POC Glucometer 148 358 148 11/20/19 11/20/19 11/20/19 12:06 16:52 21:09 POC Glucometer 331 306 223 11/21/19 11/21/19 11/21/19 06:23 11:55 17:07 POC Glucometer 203 327 213 11/21/19 11/22/19 11/22/19 21:13 06:17 11:56 POC Glucometer 231 226 405 11/22/19 11/22/19 11/22/19 14:19 16:28 20:55 POC Glucometer 249 228 223 11/23/19 11/23/19 11/23/19 06:38 11:45 16:38 POC Glucometer 194 320 260 11/23/19 11/24/19 11/24/19 21:53 06:38 11:54 POC Glucometer 364 267 364 11/24/19 11/24/19 11/25/19 16:32 21:17 06:13 POC Glucometer 259 296 280 11/25/19 11/25/19 11/25/19 11:42 17:02 21:21 POC Glucometer 350 327 314 11/26/19 11/26/19 11/26/19 06:48 11:54 16:44 POC Glucometer 251 477 430 11/26/19 11/27/19 11/27/19 21:49 06:20 11:44 POC Glucometer 338 252 426 11/27/19 11/27/19 11/28/19 16:24 21:53 06:28 POC Glucometer 281 297 193 11/28/19 11/28/19 11/28/19 12:00 17:02 21:55 POC Glucometer 393 357 396 11/29/19 11/29/19 11/29/19 06:33 11:55 16:31 POC Glucometer 288 327 308 11/29/19 11/30/19 11/30/19 21:04 06:40 11:39 POC Glucometer 285 232 361 11/30/19 11/30/19 12/01/19 16:57 21:11 06:33 POC Glucometer 290 339 225 12/01/19 12/01/19 12/01/19 11:55 16:56 21:04 POC Glucometer 427 284 246 12/02/19 12/02/19 12/02/19 06:43 11:50 16:38 POC Glucometer 250 412 351 12/03/19 12/03/19 12/03/19 07:06 11:45 17:07 POC Glucometer 311 518 343 12/03/19 12/04/19 12/04/19 21:59 06:30 11:53 POC Glucometer 321 209 294 12/04/19 12/04/19 12/05/19 16:36 22:06 06:47 POC Glucometer 313 326 231 12/05/19 12/05/19 12/05/19 11:55 17:01 21:58 POC Glucometer 438 232 318 12/06/19 12/06/19 12/06/19 06:27 12:05 16:57 POC Glucometer 242 350 223 12/06/19 12/07/19 12/07/19 23:11 06:50 11:57 POC Glucometer 337 170 416 12/07/19 12/07/19 12/08/19 16:58 21:44 06:33 POC Glucometer 183 277 228 12/08/19 12/08/19 12/08/19 12:01 17:14 21:41 POC Glucometer 419 272 221 12/09/19 12/09/19 12/09/19 06:38 11:37 17:10 POC Glucometer 173 355 176 12/09/19 12/10/19 12/10/19 21:31 06:28 11:53 POC Glucometer 220 189 368 12/10/19 12/10/19 12/11/19 16:52 21:43 06:35 POC Glucometer 154 315 114 12/11/19 12/11/19 12/12/19 11:50 16:53 06:20 POC Glucometer 291 196 235 12/12/19 12/12/19 12/12/19 11:58 16:46 21:20 POC Glucometer 288 305 285 12/13/19 12/13/19 12/13/19 06:26 11:51 16:49 POC Glucometer 194 231 159 12/13/19 12/14/19 12/14/19 21:45 06:31 11:53 POC Glucometer 253 176 232 12/14/19 12/14/19 12/15/19 16:33 21:43 06:34 POC Glucometer 181 297 213 12/15/19 12/15/19 12/15/19 11:52 17:08 21:40 POC Glucometer 200 217 239 12/16/19 12/16/19 06:31 11:29 POC Glucometer 190 223 - Treatment Discharge Condition: Discharge condition good - Medication Discharge Medications: Ambulatory Orders Albuterol Sulfate Inhaler - [Ventolin Hfa Inhaler -] 2 inh PO Q4H PRN 10/09/17 Temazepam [Restoril] 15 mg PO HS PRN 10/09/17 Lisinopril [Zestril] 5 mg PO DAILY 30 Days #30 tablet 10/22/17 Benzonatate [Tessalon Pearls -] 100 mg PO TID 11/15/19 Fenofibrate,Micronized [Fenofibrate] 130 mg PO DAILY 11/15/19 Insulin Glargine,Hum.rec.anlog [Basaglar Kwikpen U-100] 30 unit SQ HS 11/15/19 Insulin Lispro [Admelog] 12 units SQ TID 11/15/19 Fenofibric Acid [Trilipix -] 135 mg PO DAILY 11/19/19 Insulin (Levemir) [Levemir Vial] 30 units SQ HS 11/19/19 Fluoxetine HCl [Prozac -] 30 mg PO DAILY #90 capsule 12/15/19 Risperidone [Risperdal -] 1 mg PO DAILY #30 tablet 12/15/19 Risperidone [Risperdal -] 2 mg PO HS #30 tablet 12/15/19 - Medication-Assisted Treatment (MAT) Medication-Assisted Treatment (MAT): No - Discharge Instructions Diet, activity, other medical instructions: Diet:KIERAN/NCS Activity: oob ambulating with steady gait Other medical instructions:Follow up with CD aftercare recommendations as scheduled. Follow up with your primary care provider within 1 week after discharge for medical management. - Diagnosis (1) Alcohol dependence Status: Chronic Qualifiers: Substance use status: uncomplicated Qualified Code(s): F10.20 - Alcohol dependence, uncomplicated (2) Dyslipidemia Status: Chronic (3) Nicotine dependence Status: Chronic Qualifiers: Nicotine product type: cigarettes Substance use status: in withdrawal Qualified Code(s): F17.213 - Nicotine dependence, cigarettes, with withdrawal (4) Asthma Status: Chronic Qualifiers: Asthma severity: mild Asthma persistence: intermittent Asthma complication type: with status asthmaticus Qualified Code(s): J45.22 - Mild intermittent asthma with status asthmaticus (5) Diabetes mellitus type II, uncontrolled Status: Chronic (6) GERD (gastroesophageal reflux disease) Status: Chronic Qualifiers: Esophagitis presence: without esophagitis Qualified Code(s): K21.9 - Gastro -esophageal reflux disease without esophagitis (7) Hepatitis C Status: Chronic Qualifiers: Viral hepatitis chronicity: carrier Qualified Code(s): B18.2 - Chronic viral hepatitis C (8) Hypertension Status: Chronic Qualifiers: Hypertension type: essential hypertension Qualified Code(s): I10 - Essential (primary) hypertension (9) Seizure Status: Chronic (10) Use of cane as ambulatory aid Status: Chronic - Follow-up Referral Minutes to complete discharge: 20 - AMA Did Patient Leave Against Medical Advice: No Additional Comments: Pt will follow up with his primary care provider dr Elder Isbell Ph: [phone] for continued medical management.
[2019-12-15] MEDS: MELATONIN 5 MG TABLETS PO PRN (21:40)
[2019-12-15] MEDS: THIAMINE HCL 100 MG TABLET (FP) PO SCH (21:40)
[2019-12-15] MEDS: risperiDONE 2 MG TABLET PO SCH (21:40)
[2019-12-15] MEDS: LIDOCAINE PATCH REMOVAL MC SCH (21:42)
[2019-12-15] MEDS: INSULIN (LEVEMIR) 100 UNITS/ML UNITS SQ SCH (21:42)
[2019-12-15] MEDS ORDERED: INSULIN (LEVEMIR) 100 UNITS/ML UNITS SQ ONE (22:09)
[2019-12-16 07:07] VITALS: BP 108/68; TEMP 97
[2019-12-16] MEDS: INSULIN SLIDING SCALE (NOVOLOG) 1 VIAL SQ SCH ×2 (07:29→11:58)
[2019-12-16] MEDS ORDERED: INSULIN (NOVOLOG) ASPART 100 UNITS/ML 10ML VIAL ONE ×2 (07:34→11:56)
[2019-12-16] MEDS ORDERED: PT OWN MED DRAWER 7, Y5N ONE (08:16)
--- NOTE | 2019-12-16 08:16 | PN ---
S Progress Note Note: Pt is discharging today as scheduled. Vital Signs - 24 hr 12/15/19 12/16/19 12/16/19 09:38 03:30 07:06 Temperature 97.0 F L Pulse Rate 85 83 Respiratory 18 16 Rate Blood Pressure 100/66 108/68 Alert o x 3,denies s/h/i nad oob ambulating with steady gait A/P Medically stable D/C pt today follow up with CD aftercare as recommended. follow up with your primary care provider Dr. Elder Isbell for medical management. Pt has own medications with her and has refills at her pharmacy on [place], [place].
[2019-12-16] MEDS: guaiFENesin 600 MG TABLET.ER (FP) PO SCH (09:08)
[2019-12-16] MEDS: risperiDONE 1 MG TABLET PO SCH (09:09)
[2019-12-16] MEDS: FLUoxetine HCL 10 MG CAPSULE PO SCH (09:09)
[2019-12-16] MEDS: PRENATAL VITAMINS W/ FOLIC ACID TABLET (FP) PO SCH (09:09)
[2019-12-16] MEDS: LISINOPRIL 5 MG TABLET (FP) PO SCH (09:09)
[2019-12-16] MEDS: NICOTINE 21 MG/24 HOURS TOPICAL PATCH TD SCH (09:10)
[2019-12-16] MEDS: IBUPROFEN 400 MG TABLET (FP) PO PRN (09:10)
[2019-12-16] MEDS: hydrOXYzine PAMOATE 25 MG CAPSULE (FP) PO PRN (09:10)
[2019-12-16] MEDS: FENOFIBRIC ACID 135 MG CAP PO SCH (09:10)
[2019-12-16] MEDS: BACITRACIN 15 GM TUBE TOPICAL OINTMENT TP SCH (09:11)
[2019-12-16] MEDS: TOLNAFTATE 1% CREAM 15 GM TUBE TP SCH (09:11)
[2019-12-16] MEDS: LIDOCAINE 5% TOPICAL PATCH TP SCH (09:11)
[2019-12-16 09:44] VITALS: PULSE 79
== END 2019-12-16 10:50 | disposition home or self-care (01) | DRG 772 ==
LOC: YASAS 12:41 → Y3E 12:42
PROVIDERS: ADMIT Neuromusculoskeletal Medicine & OMM; ATTEND Neuromusculoskeletal Medicine & OMM
PROC: HZ42ZZZ Group Counseling for Substance Abuse Treatment, Cognitive-Behavioral (ICD-10-PCS; principal; 2019-11-19)
DX: F10.20 Alcohol dependence, uncomplicated (principal); F17.210 Nicotine dependence, cigarettes, uncomplicated; F10.282 Alcohol dependence with alcohol-induced sleep disorder; F10.280 Alcohol dependence with alcohol-induced anxiety disorder; F25.0 Schizoaffective disorder, bipolar type; F31.81 Bipolar II disorder; G40.909 Epilepsy, unspecified, not intractable, without status epilepticus; I10 Essential (primary) hypertension; J45.22 Mild intermittent asthma with status asthmaticus; E11.65 Type 2 diabetes mellitus with hyperglycemia; K21.9 Gastro-esophageal reflux disease without esophagitis; L84 Corns and callosities; B18.2 Chronic viral hepatitis C; R76.11 Nonspecific reaction to tuberculin skin test without active tuberculosis; Z99.89 Dependence on other enabling machines and devices; Z62.810 Personal history of physical and sexual abuse in childhood; Z59.0 Homelessness; Z79.4 Long term (current) use of insulin
CPT/HCPCS: 82962; J2794